=== PATIENT | female | born 1950 | race Caucasian/White ===

== ENCOUNTER → 2018-07-20 | Outpatient (CLI) | payer MEDICARE, MEDICAID ==
[~2018-07-20] MED LIST: CARB100O GT; CARBL GT; DSSL PO; MOM30 GT; MOME17N NASAL; PHEN60TA15 GT; RISE35 GT; SIME120L GT
[2018-07-20 13:05] VITALS: BP 95/58
== END | disposition home or self-care (01) ==
LOC: SRCNTR 13:04
PROVIDERS: ATTEND Internal Medicine Critical Care Medicine
DX: J98.11 Atelectasis (principal); G40.909 Epilepsy, unspecified, not intractable, without status epilepticus; R13.10 Dysphagia, unspecified; K22.70 Barrett's esophagus without dysplasia
CPT/HCPCS: G0463

== ENCOUNTER → 2018-08-09 | Outpatient (CLI) | payer MEDICARE, MEDICAID ==
[~2018-08-09] MED LIST changes: +ISOS10TA8 GT; +[UNRECOGNIZED DRUG - OTHER] GT
[2018-08-09 13:51] VITALS: BP 161/86
== END | disposition home or self-care (01) ==
LOC: SRCNTR 13:06
PROVIDERS: ATTEND Internal Medicine Critical Care Medicine
DX: J98.11 Atelectasis (principal); K20.9 Esophagitis, unspecified; R13.10 Dysphagia, unspecified; G82.50 Quadriplegia, unspecified; G40.909 Epilepsy, unspecified, not intractable, without status epilepticus; G80.9 Cerebral palsy, unspecified
CPT/HCPCS: G0463

== ENCOUNTER 2024-05-12 05:18 | Inpatient (IN) | payer MEDICARE, OTHER ==
[2024-05-11 05:40] VITALS: PULSE 112; RESP 18; O2SAT 100
[~2024-05-12] VITALS: Ht 152.4 cm; Wt 55.0 kg
[2024-05-12] VITALS (13 sets, daily range): PULSE 62–120; RESP 18–24; O2SAT 93–100
[~2024-05-12 05:18] MED LIST changes: +CARB100O10 GT; -CARBL GT; +DOCU50LI36 PO; -DSSL PO; -ISOS10TA8 GT; +ISOS10TA96 GT; +MAGN-169 GT; -MOM30 GT; -PHEN60TA15 GT; +PHEN60TA16 GT; -RISE35 GT; +RISE35TA GT
[2024-05-12] MEDS ORDERED: 0.9% SODIUM CHLORIDE 10 ML SYRINGE IVP PRN (05:45)
[2024-05-12] MEDS: PIPERACILLIN/TAZO 3.375 GM/D5W 50 ML IV ONE (06:06)
[2024-05-12 06:07] LABS: COVID AG,FIA SOURCE NASAL SWAB
[2024-05-12] MEDS: SODIUM CHLORIDE 0.9% 1,150 ML IV ONE (06:07)
[2024-05-12 06:11] LABS: APPEARANCE,URINE CLEAR (CLEAR); BILIRUBIN,URINE NEGATIVE (NEGATIVE); COLOR,URINE LIGHT YELLOW (YELLOW); GLUCOSE, URINE (UA) >=1000 mg/dL (NEGATIVE); KETONES,URINE NEGATIVE (NEGATIVE); LEUKOCYTE ESTERASE ,URINE NEGATIVE (NEGATIVE); NITRATE,URINE NEGATIVE (NEGATIVE); OCCULT BLOOD,URINE NEGATIVE (NEGATIVE); PROTEIN,URINE 30-70 mg/dL (NEGATIVE); SPECIFIC GRAVITIY, URINE 1.013 (1.003-1.030); UROBILINOGEN,URINE <=1.0 mg/dL (<=1.0)
[2024-05-12 06:16] LABS: BASOPHILS % (AUTO) 0.4 % (0.0-2.0); EOSINOPHILS % (AUTO) 4.9 % (1.0-6.0); HEMATOCRIT 44.7 % (36-46); HEMOGLOBIN 14.9 g/dL (12.0-16.0); LYMPHOCYTES # (AUTO) 1.5 K/uL (1.0-4.8); LYMPHOCYTES % (AUTO) 10.8 % (22.0-44.0); MEAN CORPUSCULAR HEMOGLOBIN 33.2 pg (26.0-34.0); MEAN CORPUSCULAR HGB CONC 33.3 G/dL (31.0-37.0); MEAN CORPUSCULAR VOLUME 100 fL (80-100); MONOCYTES # (AUTO) 0.6 K/uL (0.1-1.0); MONOCYTES % (AUTO) 4.3 % (2.0-9.0); NEUTROPHILS # (AUTO) 10.9 K/uL (1.8-7.7); NEUTROPHILS % (AUTO) 79.6 % (40.0-70.0); PLATELET COUNT (AUTO) 126 K/uL (150-450); RED BLOOD CELL COUNT(AUTO) 4.49 MIL/uL (4.00-5.20); RED CELL DISTRIBUTION WIDTH 14.3 % (11.5-14.5); WHITE BLOOD COUNT (AUTO) 13.8 K/uL (4.5-11.0)
[2024-05-12 06:17] LABS: PROTHROMBIN TIME 10.6 SEC (9.4-11.6)
[2024-05-12] MEDS: PROPOFOL 1000 MG/ISO-OSM 100 ML IV PRN (06:21)
[2024-05-12 06:22] LABS: B-TYPE NATRIURETIC PEPTIDE 50 pg/mL (0-100)
[2024-05-12] MEDS: ROCURONIUM BROMIDE 10 MG/ML 5 ML VIAL IVP ONE (06:22)
[2024-05-12] MEDS: ETOMIDATE 2 MG/ML 10 ML VIAL IVP ONE (06:23)
[2024-05-12] MEDS: FentaNYL CIT 1000MCG/0.9% NACL 100 ML IV PRN ×2 (06:29→18:24)
[2024-05-12 06:31] LABS: INFLUENZA TYPE A NEGATIVE FOR TYPE A (NEGATIVE); INFLUENZA TYPE B NEGATIVE FOR TYPE B (NEGATIVE)
[2024-05-12 06:32] LABS: SARS-COV2 (COVID) ANTIGEN,FIA Negative (Negative)
[2024-05-12 06:35] LABS: LACTIC ACID 2.9 mmol/L (0.4-2.0)
[2024-05-12 06:40] LABS: TROPONIN I-HIGH SENSITIVITY 15 ng/L (<51)
[2024-05-12 06:46] LABS: BACTERIA,URINE None Seen /HPF (None Seen); RBC,URINE None Seen /HPF (0-2); SQUAMOUS EPITHELIAL CELL,UR Few /LPF (None Seen); WBC,URINE 0-2 /HPF (0-5)
[2024-05-12 06:55] LABS: ANION GAP 8 mmol/L (8-16); CALCIUM, TOTAL 8.1 mg/dL (8.8-10.5); CARBON DIOXIDE 30 mmol/L (22-29); CHLORIDE 99 mmol/L (98-107); GLOMERULAR FILTR. RATE CALC > 60 mL/min (>60); GLUCOSE,RANDOM 213 mg/dL (70-110); POTASSIUM 3.4 mmol/L (3.5-5.1); SODIUM SERUM 137 mmol/L (136-145); UREA NITROGEN, BLOOD 34 mg/dL (7-18)
[2024-05-12 07:21] LABS: ABG BASE EXCESS -4.9 mmol/L (-2.0-3.0); ABG CARBOXYHEMOGLOBIN 0.4 % (0.5-1.5); ABG HCO3 20.4 mmol/L (21.0-28.0); ABG METHEMOGLOBIN 0.9 % (0.0-1.5); ABG OXYGEN CONTENT 21.2 mL/dL (15.0-23.0); ABG OXYHEMOGLOBIN 98.7 % (94.0-98.0); ABG PCO2 45 mmHg (32.0-45.0); ABG PH 7.301 (7.350-7.450); ABG TOTAL HEMOGLOBIN 14.6 G/dL (12.0-16.0); SOURCE, BLOOD GAS ARTERIAL; TEMPERATURE, FAHRENHEIT, BG 95.5 FAHREN (96.0-98.6)
[2024-05-12 07:23] LABS: ALLEN TEST, BLOOD GAS POS; O2 DEVICE,BLOOD GAS VENTILATOR (ROOM AIR); PO2, ARTERIAL BG 368.1 mmHg (83.0-108.0); SITE, BLOOD GAS LFT BRACHIAL; VT, ABG 380 ml
[2024-05-12 07:24] LABS: PEEP,BG 5 cm H2O
[2024-05-12] MEDS ORDERED: FLUV50 PO (09:44)
[2024-05-12] MEDS ORDERED: NALT50TA33 PO (09:44)
[2024-05-12] MEDS ORDERED: ATOR20TA PO (09:44)
[2024-05-12] MEDS ORDERED: MELA3TAB89 PO (09:44)
[2024-05-12] MEDS ORDERED: MONT-35 PO (09:44)
[2024-05-12] MEDS ORDERED: PHEN20EL24 GT ×2 (09:44)
[2024-05-12] MEDS ORDERED: FURO20TA5 PO (09:44)
[2024-05-12] MEDS ORDERED: LANS-78 PO (09:44)
[2024-05-12] MEDS ORDERED: FLUT16SP NASAL (09:44)
[2024-05-12] MEDS ORDERED: CALC-1275 PO (09:44)
[2024-05-12] MEDS ORDERED: LEVO75 PO (09:44)
[2024-05-12] MEDS: ACETAMINOPHEN 1000 MG/ISO-OSM 100 ML IV ONE (11:52)
[2024-05-12] MEDS: KETAMINE HCL 500 MG in DEXTROSE 5%-WATER 490 ML IV PRN (11:52)
[2024-05-12] MEDS ORDERED: ALBUTEROL SULFATE 2.5 MG/0.5 ML NEB SOLUTION NEB ONE (13:15)
[2024-05-12] MEDS ORDERED: IPRATROPIUM BROMIDE 0.5 MG/2.5 ML NEB SOLUTION NEB ONE (13:15)
[2024-05-12 13:24] LABS: ABG BASE EXCESS 0.7 mmol/L (-2.0-3.0); ABG CARBOXYHEMOGLOBIN 0.4 % (0.5-1.5); ABG OXYGEN CONTENT 20.6 mL/dL (15.0-23.0); ABG OXYGEN SATURATION 99.7 % (94.0-98.0); ABG OXYHEMOGLOBIN 98.3 % (94.0-98.0); ABG PCO2 62 mmHg (32.0-45.0); ABG PH 7.266 (7.350-7.450); ABG TOTAL HEMOGLOBIN 13.8 G/dL (12.0-16.0); PO2, ARTERIAL BG 552.4 mmHg (83.0-108.0); SITE, BLOOD GAS RT BRACHIAL; SOURCE, BLOOD GAS ARTERIAL; TEMPERATURE, FAHRENHEIT, BG 99.3 FAHREN (96.0-98.6)
[2024-05-12 13:25] LABS: ABG A-A DIFF O2 97.3 mmHg (10-20.0); O2 DEVICE,BLOOD GAS VENTILATOR (ROOM AIR); PEEP,BG 5 cm H2O; VT, ABG 380 ml
[2024-05-12] MEDS: ALBUTEROL SULFATE 2.5 MG/0.5 ML NEB SOLUTION NEB ONE (13:29)
[2024-05-12] MEDS: IPRATROPIUM BROMIDE 0.5 MG/2.5 ML NEB SOLUTION NEB ONE (13:29)
[2024-05-12] MEDS: IPRATROPIUM BROMIDE 0.5 MG/2.5 ML NEB SOLUTION NEB SCH (13:30)
[2024-05-12] MEDS: ALBUTEROL SULFATE 2.5 MG/0.5 ML NEB SOLUTION NEB SCH (13:30)
[2024-05-12] MEDS: NOREPINEPHRINE 8 MG/0.9 % NACL 250 ML IV PRN (14:03)
[2024-05-12] MEDS: PIPERACILLIN/TAZO 3.375 GM/D5W 50 ML IV SCH (14:04)
[2024-05-12] MEDS: BENZONATATE 100 MG CAPSULE GT SCH (15:06)
[2024-05-12 15:47] LABS: ABG BASE EXCESS 0.7 mmol/L (-2.0-3.0); ABG CARBOXYHEMOGLOBIN 0.9 % (0.5-1.5); ABG HCO3 25.4 mmol/L (21.0-28.0); ABG METHEMOGLOBIN 0.7 % (0.0-1.5); ABG OXYGEN CONTENT 19.2 mL/dL (15.0-23.0); ABG OXYGEN SATURATION 97.5 % (94.0-98.0); ABG OXYHEMOGLOBIN 95.9 % (94.0-98.0); ABG PCO2 37 mmHg (32.0-45.0); ABG PH 7.448 (7.350-7.450); ABG TOTAL HEMOGLOBIN 14.2 G/dL (12.0-16.0); PO2, ARTERIAL BG 82.2 mmHg (83.0-108.0); SOURCE, BLOOD GAS ARTERIAL; TEMPERATURE, FAHRENHEIT, BG 98.8 FAHREN (96.0-98.6)
[2024-05-12 16:39] LABS: ALLEN TEST, BLOOD GAS Positive; O2 DEVICE,BLOOD GAS VENTILATOR (ROOM AIR); PEEP,BG 5 cm H2O; SITE, BLOOD GAS LFT RADIAL; VT, ABG 380 ml
[2024-05-12] MEDS: IPRATROPIUM BROMIDE 0.5 MG/2.5 ML NEB SOLUTION NEB PRN (17:01)
[2024-05-12] MEDS: ALBUTEROL SULFATE 2.5 MG/0.5 ML NEB SOLUTION NEB PRN (17:02)
[2024-05-12 17:25] LABS: APPEARANCE,URINE TURBID (CLEAR); BILIRUBIN,URINE NEGATIVE (NEGATIVE); COLOR,URINE LIGHT ORANGE (YELLOW); GLUCOSE, URINE (UA) 70-100 mg/dL (NEGATIVE); KETONES,URINE NEGATIVE (NEGATIVE); LEUKOCYTE ESTERASE ,URINE SMALL (NEGATIVE); NITRATE,URINE NEGATIVE (NEGATIVE); OCCULT BLOOD,URINE LARGE (NEGATIVE); PH,URINE 5.5 (5.0-8.0); PROTEIN,URINE 30-70 mg/dL (NEGATIVE); SPECIFIC GRAVITIY, URINE 1.027 (1.003-1.030); UROBILINOGEN,URINE <=1.0 mg/dL (<=1.0)
[2024-05-12 17:43] LABS: ANION GAP 8 mmol/L (8-16); CALCIUM, TOTAL 7.9 mg/dL (8.8-10.5); CARBON DIOXIDE 26 mmol/L (22-29); CHLORIDE 103 mmol/L (98-107); CREATININE 0.62 mg/dL (0.60-1.30); GLOMERULAR FILTR. RATE CALC > 60 mL/min (>60); GLUCOSE,RANDOM 108 mg/dL (70-110); POTASSIUM 4.4 mmol/L (3.5-5.1); SODIUM SERUM 137 mmol/L (136-145); UREA NITROGEN, BLOOD 26 mg/dL (7-18)
[2024-05-12 17:50] LABS: RBC,URINE Full Field /HPF (0-2)
[2024-05-12 17:51] LABS: BACTERIA,URINE Few /HPF (None Seen); URIC ACID CRYSTALS,URINE Few /LPF (None Seen)
[2024-05-12] MEDS: MethylPREDNISolone SOD SUCC 125 MG/2 ML VIAL IVP SCH (17:52)
[2024-05-12] MEDS: ACETAMINOPHEN 1000 MG/ISO-OSM 100 ML IV PRN (18:05)
[2024-05-12 18:12] LABS: CREATINE KINASE, TOTAL ONLY 128 U/L (26-192)
[2024-05-12 18:21] LABS: BASOPHILS % (AUTO) 0.3 % (0.0-2.0); EOSINOPHILS % (AUTO) 2.9 % (1.0-6.0); HEMATOCRIT 42.8 % (36-46); HEMOGLOBIN 13.9 g/dL (12.0-16.0); LYMPHOCYTES # (AUTO) 0.5 K/uL (1.0-4.8); LYMPHOCYTES % (AUTO) 5.4 % (22.0-44.0); MEAN CORPUSCULAR HEMOGLOBIN 32.6 pg (26.0-34.0); MEAN CORPUSCULAR HGB CONC 32.5 G/dL (31.0-37.0); MEAN CORPUSCULAR VOLUME 100 fL (80-100); MONOCYTES # (AUTO) 0.7 K/uL (0.1-1.0); MONOCYTES % (AUTO) 7.2 % (2.0-9.0); NEUTROPHILS # (AUTO) 7.8 K/uL (1.8-7.7); NEUTROPHILS % (AUTO) 84.2 % (40.0-70.0); PLATELET COUNT (AUTO) 99 K/uL (150-450); RED BLOOD CELL COUNT(AUTO) 4.26 MIL/uL (4.00-5.20); RED CELL DISTRIBUTION WIDTH 14.6 % (11.5-14.5); WHITE BLOOD COUNT (AUTO) 9.2 K/uL (4.5-11.0)
[2024-05-12] MEDS ORDERED: PROPOFOL 1000 MG/ISO-OSM 100 ML ONE (20:07)
[2024-05-12] MEDS: CARBAMAZEPINE 200 MG/10 ML GT SCH (22:30)
[2024-05-12] MEDS: PHENOBARBITAL 30 MG/7.5 ML GT SCH (22:32)
[2024-05-12] MEDS: UDCUP GT SCH (22:32)
[2024-05-13] VITALS (14 sets, daily range): BP systolic 131; BP diastolic 69; PULSE 45–90; RESP 14–24; TEMP 98.4; O2SAT 99–100
[2024-05-13] MEDS: PROPOFOL 1000 MG/ISO-OSM 100 ML IV PRN (02:17)
[2024-05-13 07:15] LABS: BASOPHILS % (AUTO) 0.1 % (0.0-2.0); EOSINOPHILS % (AUTO) 0.1 % (1.0-6.0); HEMATOCRIT 40.5 % (36-46); HEMOGLOBIN 13.3 g/dL (12.0-16.0); LYMPHOCYTES # (AUTO) 0.4 K/uL (1.0-4.8); LYMPHOCYTES % (AUTO) 3.2 % (22.0-44.0); MEAN CORPUSCULAR HEMOGLOBIN 32.3 pg (26.0-34.0); MEAN CORPUSCULAR HGB CONC 32.8 G/dL (31.0-37.0); MEAN CORPUSCULAR VOLUME 99 fL (80-100); MONOCYTES # (AUTO) 0.5 K/uL (0.1-1.0); MONOCYTES % (AUTO) 3.9 % (2.0-9.0); NEUTROPHILS # (AUTO) 11.1 K/uL (1.8-7.7); PLATELET COUNT (AUTO) 89 K/uL (150-450); RED BLOOD CELL COUNT(AUTO) 4.11 MIL/uL (4.00-5.20); RED CELL DISTRIBUTION WIDTH 14.3 % (11.5-14.5)
[2024-05-13 07:17] LABS: NEUTROPHILS % (AUTO) 92.7 % (40.0-70.0)
[2024-05-13 07:23] LABS: ANION GAP 8 mmol/L (8-16); CALCIUM, TOTAL 7.9 mg/dL (8.8-10.5); CARBON DIOXIDE 27 mmol/L (22-29); CHLORIDE 104 mmol/L (98-107); CREATININE 0.65 mg/dL (0.60-1.30); GLOMERULAR FILTR. RATE CALC > 60 mL/min (>60); GLUCOSE,RANDOM 183 mg/dL (70-110); POTASSIUM 3.4 mmol/L (3.5-5.1); SODIUM SERUM 139 mmol/L (136-145); UREA NITROGEN, BLOOD 15 mg/dL (7-18)
[2024-05-13] MEDS: GuaiFENesin SR 600 MG ER TABLET PO SCH (08:59)
[2024-05-13] MEDS: MONTELUKAST SODIUM 10 MG TABLET GT SCH (09:00)
[2024-05-13] MEDS: LEVOTHYROXINE SODIUM 75 MCG TABLET GT SCH (09:00)
[2024-05-13] MEDS: PHENOBARBITAL 30 MG/7.5 ML GT SCH (09:33)
[2024-05-13] MEDS: UDCUP GT SCH (09:33)
[2024-05-13] MEDS: FUROSEMIDE 20 MG TABLET GT SCH (09:33)
[2024-05-13] MEDS: ATORVASTATIN CALCIUM 20 MG TABLET GT SCH (09:33)
[2024-05-13] MEDS ORDERED: IPRA30SP2 NASAL (11:16)
[2024-05-13] MEDS ORDERED: PHEN64.82 PO (11:16)
[2024-05-13] MEDS ORDERED: BUDE0.25 NEB (11:16)
[2024-05-13] MEDS ORDERED: DOCU50LI40 GT (11:16)
[2024-05-13] MEDS ORDERED: PHEN32.46 PO (11:16)
[2024-05-13] MEDS ORDERED: ARFO15VI20 NEB (11:16)
[2024-05-14] VITALS (21 sets, daily range): BP systolic 116–166; BP diastolic 63–90; PULSE 71–115; RESP 10–30; TEMP 97.8–99.3; O2SAT 96–100
[2024-05-14] MEDS ORDERED: SODIUM CHLORIDE 0.9% 250 ML IV ONE (02:03)
[2024-05-14 06:30] LABS: BASOPHILS % (AUTO) 0.1 % (0.0-2.0); EOSINOPHILS % (AUTO) 0 % (1.0-6.0); HEMATOCRIT 40.9 % (36-46); HEMOGLOBIN 13.5 g/dL (12.0-16.0); LYMPHOCYTES # (AUTO) 0.5 K/uL (1.0-4.8); MEAN CORPUSCULAR HEMOGLOBIN 32.5 pg (26.0-34.0); MEAN CORPUSCULAR HGB CONC 33.1 G/dL (31.0-37.0); MEAN CORPUSCULAR VOLUME 98 fL (80-100); MONOCYTES # (AUTO) 0.6 K/uL (0.1-1.0); MONOCYTES % (AUTO) 3.9 % (2.0-9.0); NEUTROPHILS # (AUTO) 14.2 K/uL (1.8-7.7); PLATELET COUNT (AUTO) 101 K/uL (150-450); RED BLOOD CELL COUNT(AUTO) 4.17 MIL/uL (4.00-5.20); WHITE BLOOD COUNT (AUTO) 15.3 K/uL (4.5-11.0)
[2024-05-14 06:37] LABS: ANION GAP 8 mmol/L (8-16); CALCIUM, TOTAL 8.4 mg/dL (8.8-10.5); CARBON DIOXIDE 29 mmol/L (22-29); CHLORIDE 101 mmol/L (98-107); GLOMERULAR FILTR. RATE CALC > 60 mL/min (>60); GLUCOSE,RANDOM 133 mg/dL (70-110); POTASSIUM 3.2 mmol/L (3.5-5.1); SODIUM SERUM 138 mmol/L (136-145); UREA NITROGEN, BLOOD 15 mg/dL (7-18)
[2024-05-14] MEDS: FLUTICASONE PROPIONATE 50 MCG/SPRAY 16 GM NASAL SPRAY NASAL SCH (08:24)
[2024-05-14 13:36] LABS: ABG BASE EXCESS -2.5 mmol/L (-2.0-3.0); ABG CARBOXYHEMOGLOBIN 0.5 % (0.5-1.5); ABG HCO3 22.6 mmol/L (21.0-28.0); ABG METHEMOGLOBIN 0.7 % (0.0-1.5); ABG OXYGEN SATURATION 96.7 % (94.0-98.0); ABG OXYHEMOGLOBIN 95.5 % (94.0-98.0); ABG PCO2 42 mmHg (32.0-45.0); ABG PH 7.358 (7.350-7.450); ABG TOTAL HEMOGLOBIN 14.1 G/dL (12.0-16.0); PO2, ARTERIAL BG 91.1 mmHg (83.0-108.0); SOURCE, BLOOD GAS ARTERIAL
[2024-05-14 13:37] LABS: ALLEN TEST, BLOOD GAS Positive; O2 DEVICE,BLOOD GAS VENTILATOR (ROOM AIR); PEEP,BG 5 cm H2O; PRESSURE SUPPORT, BG 5 cm H2O; SITE, BLOOD GAS RT RADIAL; SPONTANEOUS VT, BG 440 ml; VENT MODE, BG Press. Support Vent. (ROOM AIR)
[2024-05-14] MEDS: POTASSIUM CHL 10 MEQ/WATER 50 ML IV PRN (14:45)
[2024-05-14 20:31] LABS: ABG BASE EXCESS 1.8 mmol/L (-2.0-3.0); ABG CARBOXYHEMOGLOBIN 0.2 % (0.5-1.5); ABG METHEMOGLOBIN 0.2 % (0.0-1.5); ABG OXYGEN CONTENT 20.1 mL/dL (15.0-23.0); ABG OXYGEN SATURATION 99.7 % (94.0-98.0); ABG OXYHEMOGLOBIN 99.3 % (94.0-98.0); ABG PCO2 42 mmHg (32.0-45.0); ABG PH 7.414 (7.350-7.450); ABG TOTAL HEMOGLOBIN 13.8 G/dL (12.0-16.0); SOURCE, BLOOD GAS ARTERIAL; TEMPERATURE, FAHRENHEIT, BG 99.1 FAHREN (96.0-98.6)
[2024-05-14 20:32] LABS: ALLEN TEST, BLOOD GAS Positive; PO2, ARTERIAL BG 334.4 mmHg (83.0-108.0); SITE, BLOOD GAS RT RADIAL
[2024-05-14 20:33] LABS: O2 DEVICE,BLOOD GAS NRB (ROOM AIR)
[2024-05-15] VITALS (17 sets, daily range): BP systolic 112–144; BP diastolic 70–79; PULSE 72–99; RESP 12–28; TEMP 98.1–99.2; O2SAT 92–100
[2024-05-15 05:59] LABS: BASOPHILS % (AUTO) 0.2 % (0.0-2.0); EOSINOPHILS % (AUTO) 0 % (1.0-6.0); HEMATOCRIT 45.1 % (36-46); HEMOGLOBIN 14.9 g/dL (12.0-16.0); LYMPHOCYTES # (AUTO) 0.4 K/uL (1.0-4.8); LYMPHOCYTES % (AUTO) 2.6 % (22.0-44.0); MEAN CORPUSCULAR HEMOGLOBIN 33.2 pg (26.0-34.0); MEAN CORPUSCULAR VOLUME 101 fL (80-100); MONOCYTES # (AUTO) 0.5 K/uL (0.1-1.0); MONOCYTES % (AUTO) 3.4 % (2.0-9.0); NEUTROPHILS # (AUTO) 14.7 K/uL (1.8-7.7); PLATELET COUNT (AUTO) 94 K/uL (150-450); RED BLOOD CELL COUNT(AUTO) 4.49 MIL/uL (4.00-5.20); RED CELL DISTRIBUTION WIDTH 14.4 % (11.5-14.5); WHITE BLOOD COUNT (AUTO) 15.6 K/uL (4.5-11.0)
[2024-05-15 06:14] LABS: ANION GAP 7 mmol/L (8-16); CALCIUM, TOTAL 8.5 mg/dL (8.8-10.5); CARBON DIOXIDE 27 mmol/L (22-29); CHLORIDE 101 mmol/L (98-107); CREATININE 0.47 mg/dL (0.60-1.30); GLOMERULAR FILTR. RATE CALC > 60 mL/min (>60); GLUCOSE,RANDOM 133 mg/dL (70-110); SODIUM SERUM 135 mmol/L (136-145); UREA NITROGEN, BLOOD 21 mg/dL (7-18)
[2024-05-15] MEDS ORDERED: SODIUM CHLORIDE 0.9% 250 ML IV ONE (07:02)
[2024-05-15 07:20] LABS: NEUTROPHILS % (AUTO) 93.8 % (40.0-70.0)
[2024-05-15] MEDS: HydrALAZINE HCL 20 MG/ML VIAL IVP PRN (10:35)
[2024-05-15] MEDS: ACETYLCYSTEINE 10% 100 MG/ML 4 ML NEB SOLUTION NEB SCH (13:48)
[2024-05-16] VITALS (14 sets, daily range): BP systolic 124–169; BP diastolic 61–125; PULSE 67–115; RESP 12–23; TEMP 98.2–99.5; O2SAT 88–100
[2024-05-16] MEDS: MORPHINE SULFATE 2 MG/ML SYRINGE IVP PRN (10:45)
[2024-05-16] MEDS: LORazepam 2 MG/ML VIAL IVP PRN (16:21)
[2024-05-17] VITALS (13 sets, daily range): BP systolic 117–169; BP diastolic 52–105; PULSE 71–99; RESP 17–22; TEMP 97.8–99.3; O2SAT 18–100
[2024-05-17] MEDS ORDERED: SODIUM CHLORIDE 0.9% 250 ML IV ONE (13:58)
[2024-05-17] MEDS: MethylPREDNISolone SOD SUCC 40 MG/ML VIAL IVP SCH (18:03)
[2024-05-18] VITALS (10 sets, daily range): BP systolic 120–145; BP diastolic 75–95; PULSE 67–91; RESP 16–20; TEMP 98–99.2; O2SAT 94–100
[2024-05-18 07:28] LABS: BASOPHILS % (AUTO) 0.1 % (0.0-2.0); EOSINOPHILS % (AUTO) 0.3 % (1.0-6.0); HEMATOCRIT 43.1 % (36-46); HEMOGLOBIN 14.8 g/dL (12.0-16.0); LYMPHOCYTES # (AUTO) 1.3 K/uL (1.0-4.8); LYMPHOCYTES % (AUTO) 14.9 % (22.0-44.0); MEAN CORPUSCULAR HEMOGLOBIN 32.9 pg (26.0-34.0); MEAN CORPUSCULAR HGB CONC 34.2 G/dL (31.0-37.0); MEAN CORPUSCULAR VOLUME 96 fL (80-100); MONOCYTES # (AUTO) 1.1 K/uL (0.1-1.0); MONOCYTES % (AUTO) 12.6 % (2.0-9.0); NEUTROPHILS # (AUTO) 6.3 K/uL (1.8-7.7); NEUTROPHILS % (AUTO) 72.1 % (40.0-70.0); PLATELET COUNT (AUTO) 154 K/uL (150-450); RED BLOOD CELL COUNT(AUTO) 4.49 MIL/uL (4.00-5.20); RED CELL DISTRIBUTION WIDTH 13.8 % (11.5-14.5); WHITE BLOOD COUNT (AUTO) 8.8 K/uL (4.5-11.0)
[2024-05-18 07:38] LABS: ANION GAP 5 mmol/L (8-16); CALCIUM, TOTAL 8.4 mg/dL (8.8-10.5); CHLORIDE 95 mmol/L (98-107); CREATININE 0.59 mg/dL (0.60-1.30); GLOMERULAR FILTR. RATE CALC > 60 mL/min (>60); GLUCOSE,RANDOM 141 mg/dL (70-110); SODIUM SERUM 141 mmol/L (136-145); UREA NITROGEN, BLOOD 23 mg/dL (7-18)
[2024-05-18 07:48] LABS: CARBON DIOXIDE 41 mmol/L (22-29); POTASSIUM 2.7 mmol/L (3.5-5.1)
[2024-05-18] MEDS ORDERED: SODIUM CHLORIDE 0.9% 250 ML IV ONE (09:21)
[2024-05-18] MEDS: GuaiFENesin/D-METHORPHAN [SUGAR-FREE] 200-20MG/10 ML SYRUP UDCUP PEG PRN (10:30)
[2024-05-18] MEDS: POTASSIUM CHLORIDE 20 MEQ ER TABLET PO PRN (17:12)
[2024-05-18] MEDS: ACETAMINOPHEN 650 MG/20.3 ML SOLUTION UDCUP PEG PRN (17:13)
[2024-05-19] VITALS (13 sets, daily range): BP systolic 103–134; BP diastolic 63–92; PULSE 64–90; RESP 11–22; TEMP 97.3–97.9; O2SAT 93–100
[2024-05-19 07:17] LABS: BASOPHILS % (AUTO) 0.2 % (0.0-2.0); EOSINOPHILS % (AUTO) 0.5 % (1.0-6.0); HEMATOCRIT 47.5 % (36-46); HEMOGLOBIN 15.9 g/dL (12.0-16.0); LYMPHOCYTES # (AUTO) 0.8 K/uL (1.0-4.8); LYMPHOCYTES % (AUTO) 8.2 % (22.0-44.0); MEAN CORPUSCULAR HGB CONC 33.6 G/dL (31.0-37.0); MEAN CORPUSCULAR VOLUME 98 fL (80-100); MONOCYTES # (AUTO) 0.8 K/uL (0.1-1.0); MONOCYTES % (AUTO) 7.8 % (2.0-9.0); NEUTROPHILS # (AUTO) 8.4 K/uL (1.8-7.7); NEUTROPHILS % (AUTO) 83.3 % (40.0-70.0); PLATELET COUNT (AUTO) 162 K/uL (150-450); RED BLOOD CELL COUNT(AUTO) 4.84 MIL/uL (4.00-5.20); RED CELL DISTRIBUTION WIDTH 14.1 % (11.5-14.5); WHITE BLOOD COUNT (AUTO) 10.1 K/uL (4.5-11.0)
[2024-05-19 07:24] LABS: ANION GAP 1 mmol/L (8-16); CALCIUM, TOTAL 8.4 mg/dL (8.8-10.5); CARBON DIOXIDE 40 mmol/L (22-29); CHLORIDE 99 mmol/L (98-107); GLOMERULAR FILTR. RATE CALC > 60 mL/min (>60); GLUCOSE,RANDOM 156 mg/dL (70-110); POTASSIUM 4.1 mmol/L (3.5-5.1); SODIUM SERUM 140 mmol/L (136-145); UREA NITROGEN, BLOOD 23 mg/dL (7-18)
[2024-05-20] VITALS (13 sets, daily range): BP systolic 113–165; BP diastolic 56–95; PULSE 83–101; RESP 18–23; TEMP 98–98.8; O2SAT 93–97
[2024-05-20 06:56] LABS: BASOPHILS % (AUTO) 0.1 % (0.0-2.0); EOSINOPHILS % (AUTO) 0.4 % (1.0-6.0); HEMATOCRIT 45.8 % (36-46); HEMOGLOBIN 15.4 g/dL (12.0-16.0); LYMPHOCYTES # (AUTO) 0.9 K/uL (1.0-4.8); LYMPHOCYTES % (AUTO) 5.6 % (22.0-44.0); MEAN CORPUSCULAR HEMOGLOBIN 32.9 pg (26.0-34.0); MEAN CORPUSCULAR HGB CONC 33.6 G/dL (31.0-37.0); MEAN CORPUSCULAR VOLUME 98 fL (80-100); MONOCYTES # (AUTO) 0.6 K/uL (0.1-1.0); MONOCYTES % (AUTO) 3.7 % (2.0-9.0); NEUTROPHILS # (AUTO) 14.9 K/uL (1.8-7.7); PLATELET COUNT (AUTO) 169 K/uL (150-450); RED BLOOD CELL COUNT(AUTO) 4.68 MIL/uL (4.00-5.20); RED CELL DISTRIBUTION WIDTH 14.2 % (11.5-14.5); WHITE BLOOD COUNT (AUTO) 16.6 K/uL (4.5-11.0)
[2024-05-20 07:01] LABS: NEUTROPHILS % (AUTO) 90.2 % (40.0-70.0)
[2024-05-20 07:12] LABS: ANION GAP 0 mmol/L (8-16); CALCIUM, TOTAL 8.5 mg/dL (8.8-10.5); CHLORIDE 99 mmol/L (98-107); CREATININE 0.65 mg/dL (0.60-1.30); GLOMERULAR FILTR. RATE CALC > 60 mL/min (>60); GLUCOSE,RANDOM 144 mg/dL (70-110); POTASSIUM 3.8 mmol/L (3.5-5.1); SODIUM SERUM 142 mmol/L (136-145); UREA NITROGEN, BLOOD 29 mg/dL (7-18)
[2024-05-20 07:22] LABS: CARBON DIOXIDE 43 mmol/L (22-29)
[2024-05-20] MEDS: MethylPREDNISolone SOD SUCC 40 MG/ML VIAL IVP SCH (21:58)
[2024-05-21] VITALS (12 sets, daily range): BP systolic 113–142; BP diastolic 58–81; PULSE 81–96; RESP 16–24; TEMP 97.4–98.4; O2SAT 90–99
[2024-05-22 04:21] VITALS: BP 121/80; PULSE 97; RESP 18; TEMP 97.5; O2SAT 99
[2024-05-22 08:01] VITALS: PULSE 83; RESP 20; O2SAT 95
[2024-05-22 08:17] VITALS: BP 116/65; PULSE 79; RESP 18; TEMP 97.8; O2SAT 100
[2024-05-22 08:18] VITALS: PULSE 79; RESP 20; O2SAT 100
[2024-05-22 14:02] VITALS: PULSE 84; RESP 20; O2SAT 99
[2024-05-22 16:15] VITALS: BP 123/59; PULSE 96; RESP 18; TEMP 97.8; O2SAT 97
== END 2024-05-22 20:15 | disposition home or self-care (01) | DRG 871 ==
LOC: EMS 05:21 → EDH 06:56 → UNDOADMIN 13:19 → EDH 13:20 → ICU 05-13 21:30 → 5S 05-17 11:30 → 4E 05-21 20:11
PROVIDERS: ADMIT Internal Medicine; ATTEND Internal Medicine
PROC: 5A1945Z Respiratory Ventilation, 24-96 Consecutive Hours (ICD-10-PCS; principal; 2024-05-14)
PROC: 0BH17EZ Insertion of Endotracheal Airway into Trachea, Via Natural or Artificial Opening (ICD-10-PCS; 2024-05-14)
DX: A41.9 Sepsis, unspecified organism (principal); G80.0 Spastic quadriplegic cerebral palsy; J69.0 Pneumonitis due to inhalation of food and vomit; J96.01 Acute respiratory failure with hypoxia; E87.20 Acidosis, unspecified; J44.1 Chronic obstructive pulmonary disease with (acute) exacerbation; N39.0 Urinary tract infection, site not specified; E44.0 Moderate protein-calorie malnutrition; Z20.822 Contact with and (suspected) exposure to COVID-19; I11.0 Hypertensive heart disease with heart failure; G40.909 Epilepsy, unspecified, not intractable, without status epilepticus; I50.9 Heart failure, unspecified; R13.10 Dysphagia, unspecified; E87.6 Hypokalemia; Z79.899 Other long term (current) drug therapy; Z93.1 Gastrostomy status
CPT/HCPCS: 36600; 70450; 71045; 71250; 80048; 81001; 82550; 82805; 83605; 83880; 84132; 84145; 84484; 85025; 85610; 87040; 87077; 87081; 87086; 87205; 87804; 93005; 94002; 94003; 94640; 97112; 97163; 97167; 99285; G0378; J0131; J0360; J2060; J2270; J2543; J2704; J2919; J3010; J3480; J3490; J7030; J7050; J7060; 36415-L1; 36415-TC; J7613

== ENCOUNTER 2024-10-27 21:21 | Inpatient (IN) | payer MEDICARE, OTHER ==
[~2024-10-27] VITALS: Ht 162.6 cm; Wt 68.9 kg
[~2024-10-27 21:21] MED LIST changes: +AMIO200T74 GT; +AMOX250S73 GT; +APIX5TAB GT; +ARFO15VI20 NEB; +ATOR20TA PO; +BUDE0.25 NEB; +BUDE0.5A NEB; -CARB100O GT; -DOCU50LI36 PO; +DOCU50LI40 GT; +FLUT16SP NASAL; +FLUV50 PO; +FURO20TA5 GT; +IPRA30SP2 NASAL; +LANS-78 PO; +LEVO75 PO; +LORA10TA7 GT; -MAGN-169 GT; -MOME17N NASAL; +MONT-35 PO; +NALT50TA33 PO; +PHEN32.46 PO; -PHEN60TA16 GT; +PHEN64.82 PO; +PRED-554 PO; -RISE35TA GT; -SIME120L GT; +SIME80TA82 PO; -[UNRECOGNIZED DRUG - OTHER] GT
[2024-10-27 21:55] LABS: PLATELET COUNT (AUTO) 184 K/uL (150-450); RED BLOOD CELL COUNT(AUTO) 3.80 MIL/uL (4.00-5.20); RED CELL DISTRIBUTION WIDTH 17.6 % (11.5-14.5); WHITE BLOOD COUNT (AUTO) 21.0 K/uL (4.5-11.0)
[2024-10-27 22:02] LABS: CALCIUM, TOTAL 8.4 mg/dL (8.8-10.5); CREATININE 0.74 mg/dL (0.60-1.30); GLOMERULAR FILTR. RATE CALC > 60 mL/min (>60); GLUCOSE,RANDOM 127 mg/dL (70-110); SODIUM SERUM 135 mmol/L (136-145); UREA NITROGEN, BLOOD 34 mg/dL (7-18)
[2024-10-27 22:08] LABS: ASPARTATE AMINOTRANSFERASE 27 U/L (15-37); TOTAL PROTEIN, SERUM 6.1 g/dL (6.4-8.2)
[2024-10-27 22:11] LABS: TROPONIN I-HIGH SENSITIVITY 30 ng/L (<51)
[2024-10-27 22:19] LABS: LACTIC ACID 2.8 mmol/L (0.4-2.0)
[2024-10-27] MEDS: SODIUM CHLORIDE 0.9% 1,000 ML IV ONE (22:24)
[2024-10-27 22:37] LABS: BAND NEUTROPHILS % (MANUAL) 17 % (0-5); EOSINOPHILS % (MANUAL) 2 % (1-6); LYMPHOCYTES % (MANUAL) 3 % (22-44); MONOCYTES % (MANUAL) 6 % (2-9); SEGMENTED NEUTROPHILS % 72 % (40-70)
[2024-10-27 22:38] LABS: RBC MORPHOLOGY COMMENT ABNORMAL R
[2024-10-27] MEDS: PIPERACILLIN SODIUM/TAZOBACTAM 4.5 GM in DEXTROSE 5%-WATER 100 ML IV ONE (23:06)
[2024-10-27] MEDS: VANCOMYCIN 1.75GM/WATER(PEG) 350 ML IV ONE (23:06)
[2024-10-28] VITALS (12 sets, daily range): BP systolic 105–115; BP diastolic 58–68; PULSE 75–108; RESP 18–28; TEMP 97.5–99.7; O2SAT 92–100
[2024-10-28] MEDS ORDERED: ACETAMINOPHEN 325 MG TABLET PO PRN (01:15)
[2024-10-28] MEDS ORDERED: ZOLPIDEM TARTRATE 5 MG TABLET PO PRN (01:15)
[2024-10-28] MEDS ORDERED: ONDANSETRON HCL 4 MG/2 ML VIAL IVP PRN (01:15)
[2024-10-28] MEDS ORDERED: MORPHINE SULFATE 2 MG/ML SYRINGE IVP PRN (01:15)
[2024-10-28] MEDS ORDERED: HYDROCODONE/ACETAMINOPHEN 5-325 MG TABLET PO PRN (01:15)
[2024-10-28] MEDS ORDERED: MAGNESIUM HYDROXIDE SUSPENSION 30 ML UDCUP PO PRN (01:15)
[2024-10-28] MEDS: AZITHROMYCIN 500 MG/NS 250 ML IV SCH (01:55)
[2024-10-28] MEDS: IPRATROPIUM BROMIDE 0.5 MG/2.5 ML NEB SOLUTION NEB SCH (02:25)
[2024-10-28] MEDS: ALBUTEROL SULFATE 2.5 MG/0.5 ML NEB SOLUTION NEB SCH (02:25)
[2024-10-28] MEDS ORDERED: SODIUM CHLORIDE 0.9% 500 ML IV ONE (06:37)
[2024-10-28 06:40] LABS: COVID AG,FIA SOURCE NASAL SWAB
[2024-10-28] MEDS: LEVOTHYROXINE SODIUM 75 MCG TABLET PO SCH (07:40)
[2024-10-28 07:43] LABS: INFLUENZA TYPE A NEGATIVE FOR TYPE A (NEGATIVE); INFLUENZA TYPE B NEGATIVE FOR TYPE B (NEGATIVE); SARS-COV2 (COVID) ANTIGEN,FIA Negative (Negative)
[2024-10-28] MEDS: AMIODARONE HCL 200 MG TABLET GT SCH (08:41)
[2024-10-28] MEDS: DOCUSATE SODIUM 100 MG CAPSULE PO SCH (08:42)
[2024-10-28] MEDS: BENZONATATE 100 MG CAPSULE PO SCH (08:42)
[2024-10-28] MEDS: ATORVASTATIN CALCIUM 20 MG TABLET PO SCH (08:42)
[2024-10-28] MEDS: GuaiFENesin SR 600 MG ER TABLET PO SCH (08:42)
[2024-10-28] MEDS: APIXABAN 5 MG TABLET GT SCH (08:42)
[2024-10-28] MEDS: MONTELUKAST SODIUM 10 MG TABLET PO SCH (08:42)
[2024-10-28] MEDS: PANTOPRAZOLE SODIUM 40 MG DR TABLET PO SCH (08:42)
[2024-10-28] MEDS: FLUTICASONE PROPIONATE 50 MCG/SPRAY 16 GM NASAL SPRAY NASAL SCH (08:43)
[2024-10-28] MEDS: CARBAMAZEPINE 200 MG/10 ML GT SCH (08:45)
[2024-10-28] MEDS: CefTRIAXone 1 GM/DEXTROSE 50 ML IV SCH (09:06)
[2024-10-28] MEDS ORDERED: HYDROCODONE/ACETAMINOPHEN 5-325 MG TABLET GT PRN (13:31)
[2024-10-28] MEDS: DEXTROSE 5%-0.45% SODIUM CHL 1,000 ML IV SCH (16:51)
[2024-10-28] MEDS ORDERED: SODIUM CHLORIDE 3% 15 ML NEB SOLUTION NEB ONE (19:32)
[2024-10-28] MEDS: DOCUSATE SODIUM 100 MG/10 ML LIQUID UDCUP GT SCH (21:00)
[2024-10-28] MEDS: PHENOBARBITAL 30 MG/7.5 ML GT SCH (21:40)
[2024-10-28] MEDS: UDCUP GT SCH (21:40)
[2024-10-28 22:20] LABS: ABG BASE EXCESS 4.5 mmol/L (-2.0-3.0); ABG CARBOXYHEMOGLOBIN 0.9 % (0.5-1.5); ABG HCO3 27.8 mmol/L (21.0-28.0); ABG METHEMOGLOBIN 0.1 % (0.0-1.5); ABG OXYGEN CONTENT 17.3 mL/dL (15.0-23.0); ABG OXYGEN SATURATION 99.5 % (94.0-98.0); ABG OXYHEMOGLOBIN 98.5 % (94.0-98.0); ABG PCO2 48 mmHg (32.0-45.0); ABG PH 7.400 (7.350-7.450); ABG TOTAL HEMOGLOBIN 12.2 G/dL (12.0-16.0); FRACTIONATED INSPIRED OXYGEN 100.0 % (21-100.0); PO2, ARTERIAL BG 185.1 mmHg (83.0-108.0); SOURCE, BLOOD GAS ARTERIAL; TEMPERATURE, FAHRENHEIT, BG 97.5 FAHREN (96.0-98.6)
[2024-10-28 22:23] LABS: ABG A-A DIFF O2 481.1 mmHg (10-20.0); ALLEN TEST, BLOOD GAS Positive; FLOW, BLOOD GAS 15.00 L/min (0.00-15.00); O2 DEVICE,BLOOD GAS NON REBREATHER (ROOM AIR); SITE, BLOOD GAS LFT RADIAL
[2024-10-28 22:24] LABS: PATIENT RATE, BG 20.0 min.
[2024-10-29] VITALS (17 sets, daily range): BP systolic 106–132; BP diastolic 54–74; PULSE 73–99; RESP 12–28; TEMP 98–99; O2SAT 93–99
[2024-10-29 00:50] LABS: GLUCOMETER DEV NAME(LOC) 5N.1D; GLUCOSE,POINT OF CARE 163 MG/DL (70-110)
[2024-10-29] MEDS: ALBUTEROL SULFATE 2.5 MG/0.5 ML NEB SOLUTION NEB PRN (00:59)
[2024-10-29] MEDS: IPRATROPIUM BROMIDE 0.5 MG/2.5 ML NEB SOLUTION NEB PRN (00:59)
[2024-10-29] MEDS: ACETYLCYSTEINE 10% 100 MG/ML 4 ML NEB SOLUTION NEB SCH (02:29)
[2024-10-29] MEDS: LEVOTHYROXINE SODIUM 75 MCG TABLET GT SCH (05:44)
[2024-10-29 06:44] LABS: PLATELET COUNT (AUTO) 138 K/uL (150-450); RED BLOOD CELL COUNT(AUTO) 3.31 MIL/uL (4.00-5.20); RED CELL DISTRIBUTION WIDTH 17.3 % (11.5-14.5); WHITE BLOOD COUNT (AUTO) 13.9 K/uL (4.5-11.0)
[2024-10-29 06:49] LABS: BAND NEUTROPHILS % (MANUAL) 15 % (0-5); LYMPHOCYTES % (MANUAL) 3 % (22-44); MONOCYTES % (MANUAL) 7 % (2-9); SEGMENTED NEUTROPHILS % 75 % (40-70)
[2024-10-29 07:08] LABS: CREATININE 0.54 mg/dL (0.60-1.30); GLUCOSE,RANDOM 185 mg/dL (70-110); SODIUM SERUM 140 mmol/L (136-145); UREA NITROGEN, BLOOD 27 mg/dL (7-18)
[2024-10-29 07:09] LABS: CALCIUM, TOTAL 8.3 mg/dL (8.8-10.5); GLOMERULAR FILTR. RATE CALC > 60 mL/min (>60)
[2024-10-29] MEDS: MONTELUKAST SODIUM 10 MG TABLET GT SCH (08:24)
[2024-10-29] MEDS: UDCUP GT SCH (08:24)
[2024-10-29] MEDS: PHENOBARBITAL 30 MG/7.5 ML GT SCH (08:24)
[2024-10-29] MEDS: ATORVASTATIN CALCIUM 20 MG TABLET GT SCH (08:27)
[2024-10-29] MEDS: POTASSIUM CHLORIDE 10% 40 MEQ/30 ML LIQUID UDCUP GT PRN (11:51)
[2024-10-29] MEDS: SCOPOLAMINE HYDROBROMIDE 1 MG/72 HOUR PATCH TD SCH (13:26)
[2024-10-30] VITALS (16 sets, daily range): BP systolic 97–145; BP diastolic 69–158; PULSE 70–117; RESP 18–23; TEMP 97.5–98.7; O2SAT 93–98
[2024-10-30 06:41] LABS: PLATELET COUNT (AUTO) 130 K/uL (150-450); RED BLOOD CELL COUNT(AUTO) 3.51 MIL/uL (4.00-5.20); RED CELL DISTRIBUTION WIDTH 17.6 % (11.5-14.5); WHITE BLOOD COUNT (AUTO) 15.0 K/uL (4.5-11.0)
[2024-10-30 06:58] LABS: CALCIUM, TOTAL 8.9 mg/dL (8.8-10.5); CREATININE 0.48 mg/dL (0.60-1.30); GLOMERULAR FILTR. RATE CALC > 60 mL/min (>60); GLUCOSE,RANDOM 151 mg/dL (70-110); SODIUM SERUM 139 mmol/L (136-145); UREA NITROGEN, BLOOD 28 mg/dL (7-18)
[2024-10-30 08:19] LABS: BAND NEUTROPHILS % (MANUAL) 23 % (0-5); LYMPHOCYTES % (MANUAL) 1 % (22-44); MONOCYTES % (MANUAL) 8 % (2-9); RBC MORPHOLOGY COMMENT NORMAL RBC MORPH; SEGMENTED NEUTROPHILS % 68 % (40-70)
[2024-10-30] MEDS: FUROSEMIDE 20 MG TABLET GT SCH (09:14)
[2024-10-30] MEDS: ETHYL ALCOHOL 62% ANTISEPTIC NASAL SANITIZER 0.6 ML AMPUL NASAL SCH (11:27)
[2024-10-31] VITALS (18 sets, daily range): BP systolic 105–144; BP diastolic 59–81; PULSE 71–111; RESP 17–20; TEMP 97.7–98.7; O2SAT 95–100
[2024-10-31 06:37] LABS: PLATELET COUNT (AUTO) 140 K/uL (150-450); RED BLOOD CELL COUNT(AUTO) 3.75 MIL/uL (4.00-5.20); RED CELL DISTRIBUTION WIDTH 17.5 % (11.5-14.5); WHITE BLOOD COUNT (AUTO) 17.2 K/uL (4.5-11.0)
[2024-10-31 06:48] LABS: CALCIUM, TOTAL 8.8 mg/dL (8.8-10.5); CREATININE 0.40 mg/dL (0.60-1.30); GLOMERULAR FILTR. RATE CALC > 60 mL/min (>60); GLUCOSE,RANDOM 134 mg/dL (70-110); SODIUM SERUM 140 mmol/L (136-145); UREA NITROGEN, BLOOD 24 mg/dL (7-18)
[2024-10-31 07:52] LABS: BAND NEUTROPHILS % (MANUAL) 20 % (0-5); LYMPHOCYTES % (MANUAL) 14 % (22-44); MONOCYTES % (MANUAL) 1 % (2-9); RBC MORPHOLOGY COMMENT NORMAL RBC MORPH; SEGMENTED NEUTROPHILS % 65 % (40-70)
[2024-11-01] VITALS (16 sets, daily range): BP systolic 126–144; BP diastolic 69–104; PULSE 80–115; RESP 18–22; TEMP 97.5–98.8; O2SAT 91–99
[2024-11-01 07:22] LABS: CALCIUM, TOTAL 8.7 mg/dL (8.8-10.5); CREATININE 0.41 mg/dL (0.60-1.30); GLOMERULAR FILTR. RATE CALC > 60 mL/min (>60); GLUCOSE,RANDOM 174 mg/dL (70-110); SODIUM SERUM 142 mmol/L (136-145); UREA NITROGEN, BLOOD 21 mg/dL (7-18)
[2024-11-01 07:30] LABS: PLATELET COUNT (AUTO) 140 K/uL (150-450); RED BLOOD CELL COUNT(AUTO) 3.63 MIL/uL (4.00-5.20); RED CELL DISTRIBUTION WIDTH 17.4 % (11.5-14.5); WHITE BLOOD COUNT (AUTO) 9.2 K/uL (4.5-11.0)
[2024-11-01 07:36] LABS: BAND NEUTROPHILS % (MANUAL) 17 % (0-5); LYMPHOCYTES % (MANUAL) 8 % (22-44); MONOCYTES % (MANUAL) 4 % (2-9); RBC MORPHOLOGY COMMENT NORMAL RBC MORPH; SEGMENTED NEUTROPHILS % 71 % (40-70)
[2024-11-01] MEDS: DIGOXIN 250 MCG/ML 2 ML AMP IVP ONE (12:59)
[2024-11-01] MEDS: DIGOXIN 250 MCG/ML 2 ML AMP IVP SCH (18:50)
[2024-11-01] MEDS: AMIODARONE HCL 150 MG in DEXTROSE 5%-WATER 97 ML IV ONE (21:55)
[2024-11-01] MEDS: AMIODARONE HCL 360 MG in DEXTROSE 5%-WATER 242.8 ML IV ONE (21:56)
[2024-11-01] MEDS: ACETAMINOPHEN 650 MG/20.3 ML SOLUTION UDCUP GT PRN (23:45)
[2024-11-02] VITALS (19 sets, daily range): BP systolic 96–153; BP diastolic 51–93; PULSE 67–120; RESP 20–22; TEMP 97.5–102.6; O2SAT 92–99
[2024-11-02] MEDS: KETOROLAC TROMETHAMINE 15 MG/ML VIAL IVP ONE (01:24)
[2024-11-02 08:03] LABS: PLATELET COUNT (AUTO) 148 K/uL (150-450); RED BLOOD CELL COUNT(AUTO) 3.97 MIL/uL (4.00-5.20); RED CELL DISTRIBUTION WIDTH 17.1 % (11.5-14.5); WHITE BLOOD COUNT (AUTO) 17.6 K/uL (4.5-11.0)
[2024-11-02 08:14] LABS: CALCIUM, TOTAL 8.3 mg/dL (8.8-10.5); CREATININE 0.46 mg/dL (0.60-1.30); GLOMERULAR FILTR. RATE CALC > 60 mL/min (>60); GLUCOSE,RANDOM 124 mg/dL (70-110); SODIUM SERUM 140 mmol/L (136-145); UREA NITROGEN, BLOOD 16 mg/dL (7-18)
[2024-11-02] MEDS ORDERED: SODIUM CHLORIDE 0.9% 250 ML IV ONE (08:21)
[2024-11-02 09:39] LABS: BAND NEUTROPHILS % (MANUAL) 37 % (0-5); LYMPHOCYTES % (MANUAL) 7 % (22-44); MONOCYTES % (MANUAL) 3 % (2-9); SEGMENTED NEUTROPHILS % 53 % (40-70)
[2024-11-02 09:40] LABS: RBC MORPHOLOGY COMMENT ABNORMAL RBC MORPH
[2024-11-02] MEDS: AMIODARONE HCL 540 MG in DEXTROSE 5%-WATER 250 ML IV ONE (21:22)
[2024-11-02] MEDS: AMIODARONE HCL 750 MG in DEXTROSE 5%-WATER 485 ML IV SCH (21:23)
[2024-11-02] MEDS: VANCOMYCIN 1.25 GM/WATER(PEG) 250 ML IV ONE (21:30)
[2024-11-03] VITALS (18 sets, daily range): BP systolic 98–146; BP diastolic 55–101; PULSE 74–119; RESP 18–24; TEMP 97.2–101.5; O2SAT 93–100
[2024-11-03] MEDS: PIPERACILLIN/TAZO 3.375 GM/D5W 50 ML IV ONE (07:06)
[2024-11-03] MEDS: AMIODARONE HCL 150 MG in DEXTROSE 5%-WATER 97 ML IV ONE (07:35)
[2024-11-03] MEDS: AMIODARONE HCL 360 MG in DEXTROSE 5%-WATER 242.8 ML IV ONE (07:35)
[2024-11-03] MEDS: VANCOMYCIN 1GM/WATER(PEG/NADA) 200 ML IV SCH (08:56)
[2024-11-03] MEDS: METOPROLOL SUCCINATE 25 MG ER TABLET PO SCH (09:00)
[2024-11-03] MEDS ORDERED: METOPROLOL SUCCINATE 25 MG ER TABLET PO SCH (09:00)
[2024-11-03] MEDS ORDERED: AMIODARONE HCL 540 MG in DEXTROSE 5%-WATER 250 ML IV ONE (12:00)
[2024-11-03 12:33] LABS: PLATELET COUNT (AUTO) 149 K/uL (150-450); RED BLOOD CELL COUNT(AUTO) 3.88 MIL/uL (4.00-5.20); RED CELL DISTRIBUTION WIDTH 17.7 % (11.5-14.5)
[2024-11-03 12:36] LABS: WHITE BLOOD COUNT (AUTO) 35.7 K/uL (4.5-11.0)
[2024-11-03 12:49] LABS: ASPARTATE AMINOTRANSFERASE 27 U/L (15-37); CALCIUM, TOTAL 8.1 mg/dL (8.8-10.5); CREATININE 0.54 mg/dL (0.60-1.30); GLOMERULAR FILTR. RATE CALC > 60 mL/min (>60); GLUCOSE,RANDOM 184 mg/dL (70-110); SODIUM SERUM 140 mmol/L (136-145); TOTAL PROTEIN, SERUM 6.1 g/dL (6.4-8.2); UREA NITROGEN, BLOOD 17 mg/dL (7-18)
[2024-11-03 12:59] LABS: BAND NEUTROPHILS % (MANUAL) 39 % (0-5); MONOCYTES % (MANUAL) 1 % (2-9); RBC MORPHOLOGY COMMENT ABNORMAL RBC MORPH; SEGMENTED NEUTROPHILS % 60 % (40-70); WBC MORPHOLOGY TOXIC GRANULATION
[2024-11-03] MEDS: PIPERACILLIN/TAZO 3.375 GM/D5W 50 ML IV SCH (13:30)
[2024-11-03 14:39] LABS: INFLUENZA A-RTPCR,COMBO NEGATIVE (NEGATIVE); INFLUENZA B-RTPCR,COMBO NEGATIVE (NEGATIVE); RESPIRATORY SYNCYTIAL VRS-PCR NEGATIVE (NEGATIVE); SARS COVID19 RTPCR, COMBO NEGATIVE (NEGATIVE)
[2024-11-03 23:04] LABS: RED BLOOD CELL COUNT(AUTO) 3.77 MIL/uL (4.00-5.20)
[2024-11-03 23:04] LABS: ABG BASE EXCESS 13.5 mmol/L (-2.0-3.0); ABG CARBOXYHEMOGLOBIN 1.0 % (0.5-1.5); ABG HCO3 34.4 mmol/L (21.0-28.0); ABG METHEMOGLOBIN 0.1 % (0.0-1.5); ABG OXYGEN CONTENT 14.4 mL/dL (15.0-23.0); ABG OXYGEN SATURATION 88.5 % (94.0-98.0); ABG OXYHEMOGLOBIN 87.5 % (94.0-98.0); ABG PH 7.339 (7.350-7.450); ABG TOTAL HEMOGLOBIN 11.7 G/dL (12.0-16.0); FRACTIONATED INSPIRED OXYGEN 100.0 % (21-100.0); SOURCE, BLOOD GAS ARTERIAL; TEMPERATURE, FAHRENHEIT, BG 98.5 FAHREN (96.0-98.6)
[2024-11-03 23:05] LABS: ABG PCO2 75 mmHg (32.0-45.0)
[2024-11-03 23:06] LABS: PLATELET COUNT (AUTO) 157 K/uL (150-450); RED CELL DISTRIBUTION WIDTH 17.6 % (11.5-14.5)
[2024-11-03 23:06] LABS: FLOW, BLOOD GAS 15.00 L/min (0.00-15.00); O2 DEVICE,BLOOD GAS NRB (ROOM AIR); PO2, ARTERIAL BG 53.1 mmHg (83.0-108.0); SITE, BLOOD GAS RT BRACHIAL
[2024-11-03 23:12] LABS: WHITE BLOOD COUNT (AUTO) 31.2 K/uL (4.5-11.0)
[2024-11-03 23:15] LABS: CALCIUM, TOTAL 8.1 mg/dL (8.8-10.5); CREATININE 0.42 mg/dL (0.60-1.30); GLOMERULAR FILTR. RATE CALC > 60 mL/min (>60); GLUCOSE,RANDOM 129 mg/dL (70-110); SODIUM SERUM 138 mmol/L (136-145); UREA NITROGEN, BLOOD 18 mg/dL (7-18)
[2024-11-03 23:24] LABS: LACTIC ACID 1.0 mmol/L (0.4-2.0); TROPONIN I-HIGH SENSITIVITY 16 ng/L (<51)
[2024-11-04] VITALS (24 sets, daily range): BP systolic 94–118; BP diastolic 44–76; PULSE 62–96; RESP 17–31; TEMP 97.6–99.3; O2SAT 89–100
[2024-11-04 00:30] LABS: GLUCOMETER DEV NAME(LOC) 5N.2C; GLUCOSE,POINT OF CARE 130 MG/DL (70-110)
[2024-11-04] MEDS ORDERED: SODIUM CHLORIDE 0.9% 250 ML IV ONE (00:31)
[2024-11-04 00:44] LABS: BAND NEUTROPHILS % (MANUAL) 0 % (0-5)
[2024-11-04 00:46] LABS: LYMPHOCYTES % (MANUAL) 6 % (22-44); MONOCYTES % (MANUAL) 1 % (2-9); SEGMENTED NEUTROPHILS % 93 % (40-70)
[2024-11-04 01:41] LABS: ABG BASE EXCESS 16.3 mmol/L (-2.0-3.0); ABG CARBOXYHEMOGLOBIN 0.6 % (0.5-1.5); ABG HCO3 37.3 mmol/L (21.0-28.0); ABG METHEMOGLOBIN 0.3 % (0.0-1.5); ABG OXYGEN CONTENT 15.3 mL/dL (15.0-23.0); ABG OXYGEN SATURATION 96.7 % (94.0-98.0); ABG OXYHEMOGLOBIN 95.8 % (94.0-98.0); ABG PH 7.379 (7.350-7.450); ABG TOTAL HEMOGLOBIN 11.3 G/dL (12.0-16.0); FRACTIONATED INSPIRED OXYGEN 50.0 % (21-100.0); PO2, ARTERIAL BG 82.2 mmHg (83.0-108.0); SOURCE, BLOOD GAS ARTERIAL; TEMPERATURE, FAHRENHEIT, BG 98.6 FAHREN (96.0-98.6)
[2024-11-04 01:42] LABS: ABG PCO2 72 mmHg (32.0-45.0); SITE, BLOOD GAS RT BRACHIAL
[2024-11-04 01:43] LABS: O2 DEVICE,BLOOD GAS BIPAP (ROOM AIR); PATIENT RATE, BG 32.0 min.; SET RATE, BG 18.0 min.; SPONTANEOUS VT, BG 514 ml
[2024-11-04 05:29] LABS: PLATELET COUNT (AUTO) 154 K/uL (150-450); RED BLOOD CELL COUNT(AUTO) 3.63 MIL/uL (4.00-5.20); RED CELL DISTRIBUTION WIDTH 17.4 % (11.5-14.5)
[2024-11-04 05:39] LABS: WHITE BLOOD COUNT (AUTO) 31.7 K/uL (4.5-11.0)
[2024-11-04 05:42] LABS: CALCIUM, TOTAL 8.2 mg/dL (8.8-10.5); CREATININE 0.61 mg/dL (0.60-1.30); GLOMERULAR FILTR. RATE CALC > 60 mL/min (>60); GLUCOSE,RANDOM 150 mg/dL (70-110); SODIUM SERUM 139 mmol/L (136-145); UREA NITROGEN, BLOOD 18 mg/dL (7-18)
[2024-11-04] MEDS ORDERED: AMIODARONE HCL 750 MG in DEXTROSE 5%-WATER 485 ML IV SCH (06:00)
[2024-11-04] MEDS ORDERED: ETHYL ALCOHOL 62% ANTISEPTIC NASAL SANITIZER 0.6 ML AMPUL NASAL SCH (09:00)
[2024-11-04 11:42] LABS: ABG A-A DIFF O2 188.2 mmHg (10-20.0); ABG BASE EXCESS 15.9 mmol/L (-2.0-3.0); ABG CARBOXYHEMOGLOBIN 0.7 % (0.5-1.5); ABG HCO3 36.6 mmol/L (21.0-28.0); ABG METHEMOGLOBIN 0.3 % (0.0-1.5); ABG OXYGEN CONTENT 16.0 mL/dL (15.0-23.0); ABG OXYGEN SATURATION 95.3 % (94.0-98.0); ABG OXYHEMOGLOBIN 94.3 % (94.0-98.0); ABG PCO2 77 mmHg (32.0-45.0); ABG PH 7.350 (7.350-7.450); ABG TOTAL HEMOGLOBIN 12.0 G/dL (12.0-16.0); ALLEN TEST, BLOOD GAS Positive; FRACTIONATED INSPIRED OXYGEN 50.0 % (21-100.0); O2 DEVICE,BLOOD GAS BIPAP (ROOM AIR); PATIENT RATE, BG 18.0 min.; PO2, ARTERIAL BG 81.2 mmHg (83.0-108.0); SET RATE, BG 18.0 min.; SITE, BLOOD GAS LFT RADIAL; SOURCE, BLOOD GAS ARTERIAL; TEMPERATURE, FAHRENHEIT, BG 99.3 FAHREN (96.0-98.6)
[2024-11-04 11:43] LABS: SPONTANEOUS VT, BG 500 ml
[2024-11-04] MEDS: HYDROCORTISONE SOD SUCC 100 MG/2 ML VIAL IVP SCH (13:30)
[2024-11-04] MEDS ORDERED: IOHEXOL 300 MG/ML 100 ML VIAL ONE (15:59)
[2024-11-04] MEDS ORDERED: SODIUM CHLORIDE 0.9% 100 ML ONE (15:59)
[2024-11-04] MEDS ORDERED: 0.9% SODIUM CHLORIDE 10 ML SYRINGE IVP ONE (15:59)
[2024-11-04 21:32] LABS: ABG BASE EXCESS 21.1 mmol/L (-2.0-3.0); ABG CARBOXYHEMOGLOBIN 0.8 % (0.5-1.5); ABG HCO3 40.1 mmol/L (21.0-28.0); ABG METHEMOGLOBIN 0.3 % (0.0-1.5); ABG OXYGEN CONTENT 14.7 mL/dL (15.0-23.0); ABG OXYGEN SATURATION 89.0 % (94.0-98.0); ABG OXYHEMOGLOBIN 88.0 % (94.0-98.0); ABG TOTAL HEMOGLOBIN 11.9 G/dL (12.0-16.0); FRACTIONATED INSPIRED OXYGEN 50.0 % (21-100.0); PO2, ARTERIAL BG 61.2 mmHg (83.0-108.0); SOURCE, BLOOD GAS ARTERIAL; TEMPERATURE, FAHRENHEIT, BG 98.5 FAHREN (96.0-98.6)
[2024-11-04 21:33] LABS: ABG PCO2 118 mmHg (32.0-45.0); ABG PH 7.232 (7.350-7.450); SITE, BLOOD GAS LFT RADIAL
[2024-11-04 21:34] LABS: O2 DEVICE,BLOOD GAS BIPAP (ROOM AIR); PATIENT RATE, BG 28.0 min.; SET RATE, BG 20.0 min.; SPONTANEOUS VT, BG 398 ml
[2024-11-04] MEDS: PROPOFOL 1000 MG/ISO-OSM 100 ML IV PRN (22:48)
[2024-11-04] MEDS: FentaNYL CIT 1000MCG/0.9% NACL 100 ML IV PRN (23:15)
[2024-11-04 23:44] LABS: ABG BASE EXCESS 12.5 mmol/L (-2.0-3.0); ABG CARBOXYHEMOGLOBIN 0.6 % (0.5-1.5); ABG HCO3 34.3 mmol/L (21.0-28.0); ABG METHEMOGLOBIN 0.3 % (0.0-1.5); ABG OXYGEN CONTENT 15.3 mL/dL (15.0-23.0); ABG OXYGEN SATURATION 98.6 % (94.0-98.0); ABG OXYHEMOGLOBIN 97.7 % (94.0-98.0); ABG PH 7.390 (7.350-7.450); ABG TOTAL HEMOGLOBIN 11.0 G/dL (12.0-16.0); FRACTIONATED INSPIRED OXYGEN 50.0 % (21-100.0); PO2, ARTERIAL BG 113.2 mmHg (83.0-108.0); SOURCE, BLOOD GAS ARTERIAL; TEMPERATURE, FAHRENHEIT, BG 98.5 FAHREN (96.0-98.6)
[2024-11-04 23:46] LABS: ABG A-A DIFF O2 172.3 mmHg (10-20.0); ABG PCO2 63 mmHg (32.0-45.0); O2 DEVICE,BLOOD GAS VENTILATOR (ROOM AIR); SITE, BLOOD GAS LFT BRACHIAL; VT, ABG 360 ml
[2024-11-04 23:47] LABS: PATIENT RATE, BG 28.0 min.; PEEP,BG 5 cm H2O; SET RATE, BG 28.0 min.; SPONTANEOUS VT, BG 362 ml
[2024-11-05] VITALS (22 sets, daily range): BP systolic 86–127; BP diastolic 43–65; PULSE 58–91; RESP 21–28; TEMP 97.3–97.8; O2SAT 89–100
[2024-11-05 05:13] LABS: PLATELET COUNT (AUTO) 141 K/uL (150-450); RED BLOOD CELL COUNT(AUTO) 3.04 MIL/uL (4.00-5.20); RED CELL DISTRIBUTION WIDTH 18.0 % (11.5-14.5); WHITE BLOOD COUNT (AUTO) 18.1 K/uL (4.5-11.0)
[2024-11-05 05:27] LABS: ASPARTATE AMINOTRANSFERASE 18 U/L (15-37); CALCIUM, TOTAL 8.0 mg/dL (8.8-10.5); CREATININE 0.61 mg/dL (0.60-1.30); GLOMERULAR FILTR. RATE CALC > 60 mL/min (>60); GLUCOSE,RANDOM 295 mg/dL (70-110); SODIUM SERUM 137 mmol/L (136-145); TOTAL PROTEIN, SERUM 5.4 g/dL (6.4-8.2); UREA NITROGEN, BLOOD 19 mg/dL (7-18)
[2024-11-05] MEDS ORDERED: SODIUM CHLORIDE 0.9% 250 ML IV ONE (15:06)
[2024-11-05 18:56] LABS: GLUCOMETER DEV NAME(LOC) ICU.S6; GLUCOSE,POINT OF CARE 177 MG/DL (70-110)
[2024-11-06] VITALS (23 sets, daily range): BP systolic 99–163; BP diastolic 45–78; PULSE 49–83; RESP 10–29; TEMP 97.1–98.2; O2SAT 96–100
[2024-11-06 06:12] LABS: CALCIUM, TOTAL 8.1 mg/dL (8.8-10.5); CREATININE 0.49 mg/dL (0.60-1.30); GLOMERULAR FILTR. RATE CALC > 60 mL/min (>60); GLUCOSE,RANDOM 193 mg/dL (70-110); SODIUM SERUM 141 mmol/L (136-145); UREA NITROGEN, BLOOD 17 mg/dL (7-18)
[2024-11-06 06:13] LABS: PLATELET COUNT (AUTO) 166 K/uL (150-450); RED BLOOD CELL COUNT(AUTO) 3.63 MIL/uL (4.00-5.20); RED CELL DISTRIBUTION WIDTH 17.2 % (11.5-14.5); WHITE BLOOD COUNT (AUTO) 14.0 K/uL (4.5-11.0)
[2024-11-06] MEDS: POTASSIUM CHL 10 MEQ/WATER 50 ML IV PRN (06:27)
[2024-11-06] MEDS: DEXMEDETOMIDINE 400 MCG/NS 100 ML IV PRN (10:21)
[2024-11-07] VITALS (23 sets, daily range): BP systolic 83–128; BP diastolic 40–71; PULSE 59–95; RESP 12–28; TEMP 97.8–98.2; O2SAT 93–100
[2024-11-07 05:46] LABS: PLATELET COUNT (AUTO) 176 K/uL (150-450); RED BLOOD CELL COUNT(AUTO) 3.38 MIL/uL (4.00-5.20); RED CELL DISTRIBUTION WIDTH 17.2 % (11.5-14.5); WHITE BLOOD COUNT (AUTO) 15.7 K/uL (4.5-11.0)
[2024-11-07 05:55] LABS: CALCIUM, TOTAL 7.9 mg/dL (8.8-10.5); CREATININE 0.51 mg/dL (0.60-1.30); GLOMERULAR FILTR. RATE CALC > 60 mL/min (>60); GLUCOSE,RANDOM 177 mg/dL (70-110); SODIUM SERUM 138 mmol/L (136-145); UREA NITROGEN, BLOOD 14 mg/dL (7-18)
[2024-11-07] MEDS: VANCOMYCIN 750 MG/WATER(PEG) 150 ML IV SCH (08:54)
[2024-11-07] MEDS ORDERED: SODIUM CHLORIDE 0.9% 250 ML IV ONE ×2 (09:17→10:38)
[2024-11-07 16:31] LABS: ABG BASE EXCESS 7.5 mmol/L (-2.0-3.0); ABG CARBOXYHEMOGLOBIN 0.5 % (0.5-1.5); ABG HCO3 29.7 mmol/L (21.0-28.0); ABG METHEMOGLOBIN 0.1 % (0.0-1.5); ABG OXYGEN CONTENT 16.4 mL/dL (15.0-23.0); ABG OXYGEN SATURATION 97.1 % (94.0-98.0); ABG OXYHEMOGLOBIN 96.5 % (94.0-98.0); ABG PCO2 64 mmHg (32.0-45.0); ABG PH 7.335 (7.350-7.450); ABG TOTAL HEMOGLOBIN 12.0 G/dL (12.0-16.0); ALLEN TEST, BLOOD GAS Positive; FRACTIONATED INSPIRED OXYGEN 40.0 % (21-100.0); O2 DEVICE,BLOOD GAS VENTILATOR (ROOM AIR); PO2, ARTERIAL BG 102.4 mmHg (83.0-108.0); SITE, BLOOD GAS RT RADIAL; SOURCE, BLOOD GAS ARTERIAL; TEMPERATURE, FAHRENHEIT, BG 98.2 FAHREN (96.0-98.6); VENT MODE, BG CPAP (ROOM AIR)
[2024-11-07 16:32] LABS: PATIENT RATE, BG 16.0 min.; PEEP,BG 0 cm H2O; PRESSURE SUPPORT, BG 8 cm H2O; SPONTANEOUS VT, BG 366 ml
[2024-11-08] VITALS (24 sets, daily range): BP systolic 132–158; BP diastolic 61–83; PULSE 48–93; RESP 8–28; TEMP 96.9–98.8; O2SAT 95–100
[2024-11-08] MEDS: BISACODYL 10 MG RECTAL RECTAL SUPPOSITORY PR PRN (00:35)
[2024-11-08 05:50] LABS: PLATELET COUNT (AUTO) 190 K/uL (150-450); RED BLOOD CELL COUNT(AUTO) 3.24 MIL/uL (4.00-5.20); RED CELL DISTRIBUTION WIDTH 17.7 % (11.5-14.5); WHITE BLOOD COUNT (AUTO) 19.4 K/uL (4.5-11.0)
[2024-11-08 06:05] LABS: ASPARTATE AMINOTRANSFERASE 26 U/L (15-37); CALCIUM, TOTAL 7.9 mg/dL (8.8-10.5); CREATININE 0.56 mg/dL (0.60-1.30); GLOMERULAR FILTR. RATE CALC > 60 mL/min (>60); GLUCOSE,RANDOM 161 mg/dL (70-110); SODIUM SERUM 139 mmol/L (136-145); TOTAL PROTEIN, SERUM 6.0 g/dL (6.4-8.2); UREA NITROGEN, BLOOD 19 mg/dL (7-18)
[2024-11-08] MEDS: MAGNESIUM HYDROXIDE SUSPENSION 30 ML UDCUP GT PRN (06:45)
[2024-11-08 14:42] LABS: ABG BASE EXCESS 5.2 mmol/L (-2.0-3.0); ABG CARBOXYHEMOGLOBIN 0.6 % (0.5-1.5); ABG HCO3 28.4 mmol/L (21.0-28.0); ABG METHEMOGLOBIN 0.3 % (0.0-1.5); ABG OXYGEN CONTENT 14.5 mL/dL (15.0-23.0); ABG OXYGEN SATURATION 96.5 % (94.0-98.0); ABG OXYHEMOGLOBIN 95.6 % (94.0-98.0); ABG PCO2 52 mmHg (32.0-45.0); ABG PH 7.385 (7.350-7.450); ABG TOTAL HEMOGLOBIN 10.7 G/dL (12.0-16.0); FRACTIONATED INSPIRED OXYGEN 30.0 % (21-100.0); PO2, ARTERIAL BG 93.0 mmHg (83.0-108.0); SOURCE, BLOOD GAS ARTERIAL; TEMPERATURE, FAHRENHEIT, BG 98.2 FAHREN (96.0-98.6)
[2024-11-08 14:44] LABS: ALLEN TEST, BLOOD GAS POS; O2 DEVICE,BLOOD GAS VENTILATOR (ROOM AIR); PATIENT RATE, BG 8.0 min.; PEEP,BG 5 cm H2O; PRESSURE SUPPORT, BG 8 cm H2O; SITE, BLOOD GAS RT RADIAL; SPONTANEOUS VT, BG 541 ml; VENT MODE, BG SPONT (ROOM AIR)
[2024-11-08] MEDS: MINERAL OIL 133 ML ENEMA PR PRN (16:23)
[2024-11-08] MEDS ORDERED: SODIUM CHLORIDE 0.9% 250 ML IV ONE (19:36)
[2024-11-09] VITALS (24 sets, daily range): BP systolic 134–172; BP diastolic 66–84; PULSE 51–69; RESP 21–28; TEMP 97.2–98; O2SAT 94–100
[2024-11-09 05:24] LABS: PLATELET COUNT (AUTO) 217 K/uL (150-450); RED BLOOD CELL COUNT(AUTO) 3.20 MIL/uL (4.00-5.20); RED CELL DISTRIBUTION WIDTH 17.7 % (11.5-14.5); WHITE BLOOD COUNT (AUTO) 12.0 K/uL (4.5-11.0)
[2024-11-09 05:28] LABS: CALCIUM, TOTAL 8.2 mg/dL (8.8-10.5); CREATININE 0.51 mg/dL (0.60-1.30); GLOMERULAR FILTR. RATE CALC > 60 mL/min (>60); GLUCOSE,RANDOM 154 mg/dL (70-110); SODIUM SERUM 133 mmol/L (136-145); UREA NITROGEN, BLOOD 15 mg/dL (7-18)
[2024-11-09] MEDS ORDERED: SODIUM CHLORIDE 0.9% 250 ML IV ONE (19:39)
[2024-11-10] VITALS (20 sets, daily range): BP systolic 128–193; BP diastolic 53–91; PULSE 48–96; RESP 10–28; TEMP 96–98; O2SAT 95–100
[2024-11-10 05:15] LABS: PLATELET COUNT (AUTO) 245 K/uL (150-450); RED BLOOD CELL COUNT(AUTO) 3.20 MIL/uL (4.00-5.20); RED CELL DISTRIBUTION WIDTH 18.0 % (11.5-14.5); WHITE BLOOD COUNT (AUTO) 11.0 K/uL (4.5-11.0)
[2024-11-10 05:22] LABS: CALCIUM, TOTAL 8.1 mg/dL (8.8-10.5); CREATININE 0.44 mg/dL (0.60-1.30); GLOMERULAR FILTR. RATE CALC > 60 mL/min (>60); GLUCOSE,RANDOM 129 mg/dL (70-110); SODIUM SERUM 139 mmol/L (136-145); UREA NITROGEN, BLOOD 10 mg/dL (7-18)
[2024-11-10 05:28] LABS: PHOSPHORUS 2.8 mg/dL (2.5-4.9)
[2024-11-10] MEDS: VANCOMYCIN 500 MG/WATER(PEG) 100 ML IV SCH (09:14)
[2024-11-10] MEDS: PANTOPRAZOLE SODIUM 40 MG/VIAL IVP SCH (11:34)
[2024-11-10 13:10] LABS: ABG BASE EXCESS 7.1 mmol/L (-2.0-3.0); ABG CARBOXYHEMOGLOBIN 0.3 % (0.5-1.5); ABG HCO3 29.8 mmol/L (21.0-28.0); ABG METHEMOGLOBIN 0.1 % (0.0-1.5); ABG OXYGEN CONTENT 17.8 mL/dL (15.0-23.0); ABG OXYGEN SATURATION 98.3 % (94.0-98.0); ABG OXYHEMOGLOBIN 97.9 % (94.0-98.0); ABG PCO2 50 mmHg (32.0-45.0); ABG PH 7.418 (7.350-7.450); ABG TOTAL HEMOGLOBIN 12.8 G/dL (12.0-16.0); FRACTIONATED INSPIRED OXYGEN 30.0 % (21-100.0); PO2, ARTERIAL BG 117.7 mmHg (83.0-108.0); SOURCE, BLOOD GAS ARTERIAL; TEMPERATURE, FAHRENHEIT, BG 96.0 FAHREN (96.0-98.6)
[2024-11-10 13:11] LABS: ALLEN TEST, BLOOD GAS POS; O2 DEVICE,BLOOD GAS VENTILATOR (ROOM AIR); PATIENT RATE, BG 11.0 min.; PEEP,BG 5 cm H2O; PRESSURE SUPPORT, BG 10 cm H2O; SITE, BLOOD GAS LFT RADIAL; SPONTANEOUS VT, BG 464 ml; VENT MODE, BG SPONT (ROOM AIR)
[2024-11-10] MEDS ORDERED: LABETALOL HCL 5 MG/ML 20 ML VIAL IVP PRN (13:15)
[2024-11-10] MEDS: HYDROCORTISONE SOD SUCC 100 MG/2 ML VIAL IVP SCH (20:21)
[2024-11-11] VITALS (24 sets, daily range): BP systolic 115–168; BP diastolic 58–94; PULSE 47–84; RESP 13–34; TEMP 97.3–97.7; O2SAT 94–100
[2024-11-11 07:24] LABS: PLATELET COUNT (AUTO) 352 K/uL (150-450); RED BLOOD CELL COUNT(AUTO) 3.48 MIL/uL (4.00-5.20); RED CELL DISTRIBUTION WIDTH 18.0 % (11.5-14.5); WHITE BLOOD COUNT (AUTO) 15.8 K/uL (4.5-11.0)
[2024-11-11 07:34] LABS: CALCIUM, TOTAL 7.9 mg/dL (8.8-10.5); CREATININE 0.36 mg/dL (0.60-1.30); GLOMERULAR FILTR. RATE CALC > 60 mL/min (>60); GLUCOSE,RANDOM 103 mg/dL (70-110); SODIUM SERUM 143 mmol/L (136-145); UREA NITROGEN, BLOOD 5 mg/dL (7-18)
[2024-11-11] MEDS: LACTULOSE 20 GM/30 ML SOLUTION UDCUP PO PRN (12:06)
[2024-11-11 14:25] LABS: ABG BASE EXCESS 8.4 mmol/L (-2.0-3.0); ABG CARBOXYHEMOGLOBIN 0.1 % (0.5-1.5); ABG HCO3 31.3 mmol/L (21.0-28.0); ABG METHEMOGLOBIN 0.3 % (0.0-1.5); ABG OXYGEN CONTENT 16.5 mL/dL (15.0-23.0); ABG OXYGEN SATURATION 96.3 % (94.0-98.0); ABG OXYHEMOGLOBIN 95.9 % (94.0-98.0); ABG PCO2 45 mmHg (32.0-45.0); ABG PH 7.472 (7.350-7.450); ABG TOTAL HEMOGLOBIN 12.2 G/dL (12.0-16.0); FRACTIONATED INSPIRED OXYGEN 30.0 % (21-100.0); PO2, ARTERIAL BG 84.4 mmHg (83.0-108.0); SOURCE, BLOOD GAS ARTERIAL; TEMPERATURE, FAHRENHEIT, BG 97.7 FAHREN (96.0-98.6)
[2024-11-11 14:26] LABS: ABG A-A DIFF O2 77.2 mmHg (10-20.0); ALLEN TEST, BLOOD GAS Positive; O2 DEVICE,BLOOD GAS VENTILATOR (ROOM AIR); PATIENT RATE, BG 13.0 min.; PEEP,BG 5 cm H2O; PRESSURE SUPPORT, BG 8 cm H2O; SITE, BLOOD GAS RT RADIAL; SPONTANEOUS VT, BG 446 ml; VENT MODE, BG CPAP (ROOM AIR)
[2024-11-12] VITALS (25 sets, daily range): BP systolic 101–164; BP diastolic 55–96; PULSE 50–111; RESP 14–31; TEMP 97.8–98.5; O2SAT 92–100
[2024-11-12 05:59] LABS: PLATELET COUNT (AUTO) 335 K/uL (150-450); RED BLOOD CELL COUNT(AUTO) 3.21 MIL/uL (4.00-5.20); RED CELL DISTRIBUTION WIDTH 18.3 % (11.5-14.5); WHITE BLOOD COUNT (AUTO) 14.0 K/uL (4.5-11.0)
[2024-11-12 06:00] LABS: ASPARTATE AMINOTRANSFERASE 36 U/L (15-37); CALCIUM, TOTAL 7.9 mg/dL (8.8-10.5); CREATININE 0.45 mg/dL (0.60-1.30); GLOMERULAR FILTR. RATE CALC > 60 mL/min (>60); GLUCOSE,RANDOM 112 mg/dL (70-110); SODIUM SERUM 139 mmol/L (136-145); TOTAL PROTEIN, SERUM 5.9 g/dL (6.4-8.2); UREA NITROGEN, BLOOD 6 mg/dL (7-18)
[2024-11-12 12:12] LABS: ABG BASE EXCESS 8.4 mmol/L (-2.0-3.0); ABG CARBOXYHEMOGLOBIN 0.4 % (0.5-1.5); ABG HCO3 30.5 mmol/L (21.0-28.0); ABG METHEMOGLOBIN 0.0 % (0.0-1.5); ABG OXYGEN CONTENT 15.8 mL/dL (15.0-23.0); ABG OXYGEN SATURATION 92.2 % (94.0-98.0); ABG OXYHEMOGLOBIN 91.8 % (94.0-98.0); ABG PCO2 58 mmHg (32.0-45.0); ABG PH 7.379 (7.350-7.450); ABG TOTAL HEMOGLOBIN 12.2 G/dL (12.0-16.0); FRACTIONATED INSPIRED OXYGEN 30.0 % (21-100.0); PO2, ARTERIAL BG 70.7 mmHg (83.0-108.0); SOURCE, BLOOD GAS ARTERIAL; TEMPERATURE, FAHRENHEIT, BG 98.0 FAHREN (96.0-98.6)
[2024-11-12 12:13] LABS: ABG A-A DIFF O2 75.3 mmHg (10-20.0); ALLEN TEST, BLOOD GAS Positive; O2 DEVICE,BLOOD GAS VENTILATOR (ROOM AIR); PATIENT RATE, BG 15.0 min.; PEEP,BG 5 cm H2O; PRESSURE SUPPORT, BG 8 cm H2O; SITE, BLOOD GAS RT RADIAL; SPONTANEOUS VT, BG 374 ml; VENT MODE, BG SPONTANEOUS (ROOM AIR)
[2024-11-12] MEDS ORDERED: SODIUM CHLORIDE 0.9% 250 ML IV ONE (21:03)
[2024-11-13] VITALS (28 sets, daily range): BP systolic 104–171; BP diastolic 55–92; PULSE 46–89; RESP 15–33; TEMP 97.6–98.6; O2SAT 94–99
[2024-11-13 06:25] LABS: PLATELET COUNT (AUTO) 397 K/uL (150-450); RED BLOOD CELL COUNT(AUTO) 3.53 MIL/uL (4.00-5.20); RED CELL DISTRIBUTION WIDTH 18.2 % (11.5-14.5); WHITE BLOOD COUNT (AUTO) 13.6 K/uL (4.5-11.0)
[2024-11-13 06:38] LABS: CALCIUM, TOTAL 7.9 mg/dL (8.8-10.5); CREATININE 0.53 mg/dL (0.60-1.30); GLOMERULAR FILTR. RATE CALC > 60 mL/min (>60); GLUCOSE,RANDOM 108 mg/dL (70-110); SODIUM SERUM 140 mmol/L (136-145); UREA NITROGEN, BLOOD 5 mg/dL (7-18)
[2024-11-13 11:52] LABS: LACTIC ACID 2.5 mmol/L (0.4-2.0)
[2024-11-13 18:05] LABS: ABG BASE EXCESS 8.8 mmol/L (-2.0-3.0); ABG CARBOXYHEMOGLOBIN 0.8 % (0.5-1.5); ABG HCO3 30.9 mmol/L (21.0-28.0); ABG METHEMOGLOBIN 0.0 % (0.0-1.5); ABG OXYGEN CONTENT 17.5 mL/dL (15.0-23.0); ABG OXYGEN SATURATION 94.1 % (94.0-98.0); ABG OXYHEMOGLOBIN 93.3 % (94.0-98.0); ABG PCO2 56 mmHg (32.0-45.0); ABG PH 7.398 (7.350-7.450); ABG TOTAL HEMOGLOBIN 13.3 G/dL (12.0-16.0); FRACTIONATED INSPIRED OXYGEN 30.0 % (21-100.0); PO2, ARTERIAL BG 75.8 mmHg (83.0-108.0); SOURCE, BLOOD GAS ARTERIAL; TEMPERATURE, FAHRENHEIT, BG 98.0 FAHREN (96.0-98.6)
[2024-11-13 18:06] LABS: ABG A-A DIFF O2 72.8 mmHg (10-20.0); ALLEN TEST, BLOOD GAS Positive; O2 DEVICE,BLOOD GAS VENTILATOR (ROOM AIR); PEEP,BG 0 cm H2O; PRESSURE SUPPORT, BG 8 cm H2O; SITE, BLOOD GAS RT RADIAL; VENT MODE, BG CPAP (ROOM AIR)
[2024-11-13] MEDS: *CLINICAL-PERIPHERAL PARENTERAL NUTRITION DOSING CLINICAL ONE (21:26)
[2024-11-13] MEDS: PPN IV SCH (22:42)
[2024-11-13] MEDS: POTASSIUM CHLORIDE IV SCH (22:42)
[2024-11-13] MEDS: SODIUM CHLORIDE IV SCH (22:42)
[2024-11-13] MEDS: [UNRECOGNIZED DRUG - OTHER] IV SCH (22:42)
[2024-11-14] VITALS (27 sets, daily range): BP systolic 123–215; BP diastolic 65–93; PULSE 58–117; RESP 22–28; TEMP 97.6–99.1; O2SAT 90–99
[2024-11-14 06:10] LABS: PLATELET COUNT (AUTO) 335 K/uL (150-450); RED BLOOD CELL COUNT(AUTO) 3.27 MIL/uL (4.00-5.20); RED CELL DISTRIBUTION WIDTH 18.8 % (11.5-14.5); WHITE BLOOD COUNT (AUTO) 11.5 K/uL (4.5-11.0)
[2024-11-14 06:22] LABS: CALCIUM, TOTAL 8.0 mg/dL (8.8-10.5); CREATININE 0.43 mg/dL (0.60-1.30); GLOMERULAR FILTR. RATE CALC > 60 mL/min (>60); GLUCOSE,RANDOM 118 mg/dL (70-110); SODIUM SERUM 139 mmol/L (136-145); UREA NITROGEN, BLOOD 6 mg/dL (7-18)
[2024-11-14 06:23] LABS: PHOSPHORUS 2.6 mg/dL (2.5-4.9)
[2024-11-14] MEDS ORDERED: IOHEXOL 300 MG/ML 50 ML VIAL ONE (11:32)
[2024-11-14] MEDS: IOHEXOL 300 MG/ML 50 ML VIAL ICOR ONE (11:42)
[2024-11-14] MEDS ORDERED: SODIUM CHLORIDE 0.9% 250 ML IV ONE (13:57)
[2024-11-14] MEDS ORDERED: IOHEXOL 350 MG/ML 100 ML VIAL ONE (14:48)
[2024-11-14] MEDS ORDERED: SODIUM CHLORIDE 0.9% 100 ML ONE (14:48)
[2024-11-15] VITALS (23 sets, daily range): BP systolic 110–170; BP diastolic 61–93; PULSE 50–89; RESP 20–28; TEMP 97.8–98.2; O2SAT 94–100
[2024-11-15 05:40] LABS: CALCIUM, TOTAL 7.6 mg/dL (8.8-10.5); CREATININE 0.40 mg/dL (0.60-1.30); GLOMERULAR FILTR. RATE CALC > 60 mL/min (>60); GLUCOSE,RANDOM 128 mg/dL (70-110); SODIUM SERUM 135 mmol/L (136-145); UREA NITROGEN, BLOOD 5 mg/dL (7-18)
[2024-11-15 05:43] LABS: PHOSPHORUS 2.9 mg/dL (2.5-4.9)
[2024-11-15 06:11] LABS: GLUCOMETER DEV NAME(LOC) ICU.S6; GLUCOSE,POINT OF CARE 147 MG/DL (70-110)
[2024-11-15] MEDS: POTASSIUM CHLORIDE 10% 40 MEQ/30 ML LIQUID UDCUP GT PRN (23:28)
[2024-11-16] VITALS (26 sets, daily range): BP systolic 92–155; BP diastolic 48–76; PULSE 55–98; RESP 14–36; TEMP 97.9–98.8; O2SAT 94–100
[2024-11-16 06:33] LABS: PLATELET COUNT (AUTO) 309 K/uL (150-450); RED BLOOD CELL COUNT(AUTO) 3.40 MIL/uL (4.00-5.20); RED CELL DISTRIBUTION WIDTH 18.6 % (11.5-14.5); WHITE BLOOD COUNT (AUTO) 20.9 K/uL (4.5-11.0)
[2024-11-16 06:53] LABS: ASPARTATE AMINOTRANSFERASE 32 U/L (15-37); CALCIUM, TOTAL 8.0 mg/dL (8.8-10.5); CREATININE 0.48 mg/dL (0.60-1.30); GLOMERULAR FILTR. RATE CALC > 60 mL/min (>60); GLUCOSE,RANDOM 127 mg/dL (70-110); PHOSPHORUS 2.4 mg/dL (2.5-4.9); SODIUM SERUM 134 mmol/L (136-145); TOTAL PROTEIN, SERUM 6.3 g/dL (6.4-8.2); UREA NITROGEN, BLOOD 6 mg/dL (7-18)
[2024-11-16] MEDS: RINGERS SOLUTION,LACTATED 1,000 ML IV SCH (16:17)
[2024-11-16 19:15] LABS: GLUCOMETER DEV NAME(LOC) ICU.S6; GLUCOSE,POINT OF CARE 137 MG/DL (70-110)
[2024-11-16] MEDS: VANCOMYCIN 750 MG/WATER(PEG) 150 ML IV SCH (20:26)
[2024-11-16] MEDS ORDERED: 0.9% SODIUM CHLORIDE 5 ML NEB SOLUTION NEB ONE (22:40)
[2024-11-17] VITALS (23 sets, daily range): BP systolic 69–189; BP diastolic 42–81; PULSE 58–120; RESP 28; TEMP 97.5–98.2; O2SAT 94–100
[2024-11-17] MEDS ORDERED: SODIUM CHLORIDE 0.9% 250 ML IV ONE (04:16)
[2024-11-17 06:01] LABS: PLATELET COUNT (AUTO) 287 K/uL (150-450); RED BLOOD CELL COUNT(AUTO) 3.40 MIL/uL (4.00-5.20); RED CELL DISTRIBUTION WIDTH 18.6 % (11.5-14.5); WHITE BLOOD COUNT (AUTO) 23.7 K/uL (4.5-11.0)
[2024-11-17] MEDS: METOPROLOL TARTRATE 5 MG/5 ML VIAL IVP SCH (09:20)
[2024-11-17] MEDS ORDERED: HEPARIN SODIUM,PORCINE 5,000 UNITS/ML VIAL IVP PRN ×2 (09:45)
[2024-11-17] MEDS ORDERED: PHENYLEPHRINE 200 MG/D5%-WATER 250 ML IV PRN (09:45)
[2024-11-17] MEDS: DIGOXIN 250 MCG/ML 2 ML AMP IVP ONE (09:51)
[2024-11-17] MEDS: FUROSEMIDE 20 MG/2 ML VIAL IVP SCH (09:53)
[2024-11-17] MEDS: PHENobarbital SODIUM 65 MG/ML VIAL IVP SCH ×2 (10:00→21:41)
[2024-11-17 10:03] LABS: CALCIUM, TOTAL 7.7 mg/dL (8.8-10.5); CREATININE 0.49 mg/dL (0.60-1.30); GLOMERULAR FILTR. RATE CALC > 60 mL/min (>60); GLUCOSE,RANDOM 82 mg/dL (70-110); SODIUM SERUM 132 mmol/L (136-145); UREA NITROGEN, BLOOD 8 mg/dL (7-18)
[2024-11-17 10:15] LABS: PHOSPHORUS 3.1 mg/dL (2.5-4.9)
[2024-11-17 12:56] LABS: PLATELET COUNT (AUTO) 217 K/uL (150-450); RED BLOOD CELL COUNT(AUTO) 2.93 MIL/uL (4.00-5.20); RED CELL DISTRIBUTION WIDTH 18.3 % (11.5-14.5); WHITE BLOOD COUNT (AUTO) 24.1 K/uL (4.5-11.0)
[2024-11-17] MEDS: ALBUMIN HUMAN 25%-25GM/100ML 100 ML IV SCH (15:18)
[2024-11-17] MEDS: RINGERS SOLUTION,LACTATED 500 ML IV ONE (15:22)
[2024-11-17] MEDS: HEPARIN SODIUM 25000 UNITS/D5W 250 ML IV PRN (15:23)
[2024-11-17] MEDS: MetroNIDAZOLE 500 MG/NACL 100 ML IV SCH (16:36)
[2024-11-18] VITALS (15 sets, daily range): BP systolic 82–150; BP diastolic 35–71; PULSE 42–65; RESP 12–28; TEMP 97.3–98.2; O2SAT 96–100
[2024-11-18 06:16] LABS: CALCIUM, TOTAL 8.2 mg/dL (8.8-10.5); CREATININE 0.40 mg/dL (0.60-1.30); GLOMERULAR FILTR. RATE CALC > 60 mL/min (>60); GLUCOSE,RANDOM 105 mg/dL (70-110); SODIUM SERUM 138 mmol/L (136-145); UREA NITROGEN, BLOOD 7 mg/dL (7-18)
[2024-11-18 07:14] LABS: RED BLOOD CELL COUNT(AUTO) 2.82 MIL/uL (4.00-5.20); RED CELL DISTRIBUTION WIDTH 18.2 % (11.5-14.5); WHITE BLOOD COUNT (AUTO) 15.6 K/uL (4.5-11.0)
[2024-11-18 07:30] LABS: PLATELET COUNT (AUTO) 207 K/uL (150-450)
[2024-11-18] MEDS ORDERED: SODIUM CHLORIDE 0.9% 250 ML IV ONE (08:13)
[2024-11-18] MEDS: HYDROCORTISONE SOD SUCC 100 MG/2 ML VIAL IVP SCH (09:07)
[2024-11-18 11:46] LABS: OCCULT BLOOD,GASTRIC FLUID NEGATIVE (NEGATIVE); PH, GASTRIC OKAY
[2024-11-18] MEDS ORDERED: MORPHINE SULFATE 2 MG/ML SYRINGE IVP PRN (12:30)
[2024-11-18] MEDS: MORPHINE SULFATE 2 MG/ML SYRINGE IVP ONE (14:17)
[2024-11-18] MEDS ORDERED: ONDANSETRON HCL 4 MG/2 ML VIAL IVP PRN (18:30)
[2024-11-18] MEDS: MORPHINE SULFATE 100 MG/NS/PF 100 ML IV PRN (19:58)
[2024-11-19] VITALS: BP 203/81; PULSE 77; RESP 16; TEMP 97.2; O2SAT 70
[2024-11-19 04:00] VITALS: BP 158/60; PULSE 71; PULSE 77; RESP 25; TEMP 97.5; O2SAT 65
[2024-11-19] MEDS ORDERED: MORPHINE SULFATE 100 MG/NS/PF 100 ML IV PRN (05:15)
[2024-11-19 09:49] VITALS: BP 128/51; PULSE 64; RESP 14; TEMP 97.2; O2SAT 45; O2SAT 68
[2024-11-19] MEDS ORDERED: SODIUM CL IRRIG SOLN BOTTLE 250 ML IRRIG ONE (12:27)
[2024-11-19] MEDS: FUROSEMIDE 20 MG/2 ML VIAL IVP ONE (15:12)
== END 2024-11-19 16:09 | DRG 870 ==
LOC: EMS 21:21 → EDH 23:56 → 5N 10-28 03:00 → ICU 11-03 23:15 → 6S 11-19 06:50
PROVIDERS: ADMIT Internal Medicine; ATTEND Internal Medicine
PROC: 5A09357 Assistance with Respiratory Ventilation, Less than 24 Consecutive Hours, Continuous Positive Airway Pressure (ICD-10-PCS; 2024-10-28)
PROC: 05HC33Z Insertion of Infusion Device into Left Basilic Vein, Percutaneous Approach (ICD-10-PCS; 2024-11-02)
PROC: 05HB33Z Insertion of Infusion Device into Right Basilic Vein, Percutaneous Approach (ICD-10-PCS; 2024-11-03)
PROC: 5A09357 Assistance with Respiratory Ventilation, Less than 24 Consecutive Hours, Continuous Positive Airway Pressure (ICD-10-PCS; 2024-11-03)
PROC: 5A1955Z Respiratory Ventilation, Greater than 96 Consecutive Hours (ICD-10-PCS; principal; 2024-11-04)
PROC: 0BH17EZ Insertion of Endotracheal Airway into Trachea, Via Natural or Artificial Opening (ICD-10-PCS; 2024-11-04)
PROC: 5A09357 Assistance with Respiratory Ventilation, Less than 24 Consecutive Hours, Continuous Positive Airway Pressure (ICD-10-PCS; 2024-11-04)
PROC: 0B9J8ZZ Drainage of Left Lower Lung Lobe, Via Natural or Artificial Opening Endoscopic (ICD-10-PCS; 2024-11-05)
PROC: 0B938ZZ Drainage of Right Main Bronchus, Via Natural or Artificial Opening Endoscopic (ICD-10-PCS; 2024-11-05)
PROC: 0B978ZZ Drainage of Left Main Bronchus, Via Natural or Artificial Opening Endoscopic (ICD-10-PCS; 2024-11-05)
PROC: 0B9F8ZZ Drainage of Right Lower Lung Lobe, Via Natural or Artificial Opening Endoscopic (ICD-10-PCS; 2024-11-05)
PROC: 0D20XUZ Change Feeding Device in Upper Intestinal Tract, External Approach (ICD-10-PCS; 2024-11-14)
DX: A41.9 Sepsis, unspecified organism (principal); G80.0 Spastic quadriplegic cerebral palsy; J69.0 Pneumonitis due to inhalation of food and vomit; J96.01 Acute respiratory failure with hypoxia; J96.02 Acute respiratory failure with hypercapnia; J15.212 Pneumonia due to Methicillin resistant Staphylococcus aureus; J45.901 Unspecified asthma with (acute) exacerbation; J44.1 Chronic obstructive pulmonary disease with (acute) exacerbation; E87.29 Other acidosis; Z43.1 Encounter for attention to gastrostomy; K56.7 Ileus, unspecified; J44.0 Chronic obstructive pulmonary disease with (acute) lower respiratory infection; Z20.822 Contact with and (suspected) exposure to COVID-19; E03.9 Hypothyroidism, unspecified; Z66 Do not resuscitate; R00.1 Bradycardia, unspecified; R13.10 Dysphagia, unspecified; I50.9 Heart failure, unspecified; I11.0 Hypertensive heart disease with heart failure; K59.00 Constipation, unspecified; D64.9 Anemia, unspecified; F41.9 Anxiety disorder, unspecified; G40.909 Epilepsy, unspecified, not intractable, without status epilepticus; I48.91 Unspecified atrial fibrillation; Z79.01 Long term (current) use of anticoagulants; Z87.19 Personal history of other diseases of the digestive system; Z79.899 Other long term (current) drug therapy
CPT/HCPCS: 0241U; 31624; 36245; 36569; 36600; 49450; 71045; 71250; 71260; 72193; 74018; 74160; 74177; 76000; 76937; 80048; 80053; 80076; 80184; 80202; 82271; 82805; 82962; 83605; 83735; 83880; 84100; 84132; 84145; 84484; 85025; 85610; 85730; 87040; 87070; 87081; 87186; 87205; 87804; 88108; 88305; 93005; 93306; 93970; 94002; 94003; 94640; 94660; 94668; 99285; G0378; J0282; J0360; J0456; J0610; J0696; J0712; J1160; J1644; J1720; J1885; J1940; J2270; J2370; J2470; J2543; J2560; J2704; J2919; J3010; J3480; J3490; J7040; J7050; J7060; J7070; J7120; J7131; P9046; Q9967; 36415-L1; 36415-TC; J7512; J7613; Z7610